=== PATIENT | male | born 1965 | race Caucasian/White ===

== ENCOUNTER 2022-01-27 14:51 | Outpatient (CLI) | payer BC, SELFPAY ==
--- NOTE | ~2022-01-27 | CT_ITS ---
EXAMINATION: CT soft tissue neck w con DATE: 01/27/2022 16:20 INDICATION: Cervical lymphadenopathy. TECHNIQUE: Computed tomography (CT) of the neck was performed with 75 mL Omnipaque-350 intravenous co ntrast. Automated exposure control and iterative reconstruction technique were employed. The dose-taniya gth product was 172.84 mGy-cm. COMPARISON: None FINDINGS: There is mild emphysema. There is mild scarring at the lung apices. There is mild mediastin al lymphadenopathy, likely reactive. The largest mediastinal node measures 18 x 11 mm. There is a rig ht posterior tracheal diverticulum at the thoracic inlet. There is plaque in the proximal internal ca rotid arteries with less than 50% stenosis relative to normal distal artery lumen diameters. There is mild mucosal thickening in the paranasal sinuses. The mastoid air cells are normal. There is mild ce rvical spondylosis. IMPRESSION: 1. No cervical lymphadenopathy. 2. Mild mediastinal lymphadenopathy, likely reactive. Reviewed, dictated and finalized at location A.
--- NOTE | ~2022-01-27 | CT_ITS ---
EXAMINATION: CT lung screening DATE: 01/27/2022 16:20 INDICATION: History of nicotine dependence. Cervical lymphadenopathy. TECHNIQUE: Computed tomography (CT) of the chest was performed without intravenous contrast. The dose -length product was 172.84 mGy-cm. Automated exposure control and iterative reconstruction technique were employed. COMPARISON: None FINDINGS: There is mild left axillary lymphadenopathy. Nonenlarged mediastinal lymph nodes, likely re active. Heart size normal. No significant pleural or pericardial effusion. There are calcified granul omas of the spleen. No significant pleural or pericardial effusion. There are calcified mediastinal a nd hilar lymph nodes, consistent with chronic granulomatous disease. There is emphysema. No focal air space consolidation. No pneumothorax. No endobronchial lesions. No suspicious pulmonary nodules or ma sses. Mild thoracic spondylosis. No acute osseous abnormality. There is gynecomastia. IMPRESSION: 1. Lung-RADS category 1: Negative. Continue annual screening with noncontrast low-dose chest CT in 12 months. 2: Left axillary lymphadenopathy, nonspecific. Largest left axillary lymph node measures 2.1 x 1.3 cm . Reviewed, dictated and finalized at location A. IMPRESSION: 1. Lung-RADS category 1: Negative. Continue annual screening with noncontrast l ow-dose chest CT in 12 months. 2: Left axillary lymphadenopathy, nonspecific. Largest left axillary lymph node measures 2.1 x 1.3 cm.
[2022-01-27 15:38] LABS: Estimated Glomerular Filt Rate 50
== END 2022-01-27 14:52 | disposition home or self-care (01) ==
LOC: CHSIMG 14:57
PROVIDERS: PCP Internal Medicine; Visit Provider Internal Medicine
DX: Z12.2 Encounter for screening for malignant neoplasm of respiratory organs (principal); Z87.891 Personal history of nicotine dependence; R59.0 Localized enlarged lymph nodes
CPT/HCPCS: 70491; 71271; Q9967

== ENCOUNTER 2022-05-15 07:01 | Outpatient (CLI) | payer BC, SELFPAY ==
--- NOTE | ~2022-05-15 | CT_ITS ---
EXAMINATION: CT diagnostic chest w con DATE: 05/15/2022 08:08 INDICATION: Left axillary lymphadenopathy TECHNIQUE: Computed tomography (CT) of the chest was performed with 75 CC Omnipaque 350 intravenous c ontrast. Automated exposure control and iterative reconstruction technique were employed. Exam dose: 350.37 mGy-cm total exam DLP. COMPARISON: 01/27/2022 CT lung screening FINDINGS: There is evidence of old pulmonary granulomatous disease including calcified right hilar an d subcarinal nodes, right lower lobe calcified pulmonary granuloma in addition to calcified splenic g ranulomas. No pulmonary infiltrate or consolidation. There is mild emphysema, with scattered pneumatoceles. Normal heart size. No thoracic aortic aneurysm or dissection. No hilar or mediastinal mass lesion or lymphadenopathy. Approximately 12.5 x 16 mm left axillary lymph node, mildly diminished from approximately 12.5 x 18 m m on 01/27/2022. Normal morphology of the adrenal glands. Minimal bilateral gynecomastia. IMPRESSION: Mild emphysema Minimal bilateral gynecomastia Reviewed, dictated and finalized at Location A. Reviewed, dictated and finalized at location A.
[2022-05-15 07:40] LABS: Estimated Glomerular Filt Rate 60
== END 2022-05-15 07:02 | disposition home or self-care (01) ==
LOC: CHSIMG 07:04
PROVIDERS: PCP Internal Medicine; Visit Provider Internal Medicine Hematology & Oncology
DX: R59.1 Generalized enlarged lymph nodes (principal)
CPT/HCPCS: 71260; Q9967

== ENCOUNTER 2024-02-25 17:42 | Outpatient (CLI) | payer OTHER, SELFPAY ==
--- NOTE | 2024-04-16 | XR_ITS ---
Ordering provider changed from Hernandez Fajardo MD to Sofia Fajardo MD [id number] XR foot RT min 3V Ordering provider: Hernandez Fajardo, History: . cellulitis of right foot . Comparison: None. FINDINGS: BONES: No acute fracture or dislocation. Hallux valgus is noted. Early calcaneal spur. JOINT SPACES: Severe osteoarthritic changes in the first metatarsophalangeal joint. No tarsal coalition. SOFT TISSUES: Normal. IMPRESSION: No acute osseous abnormality of the right foot. Reviewed, dictated and finalized at location A. MTDD
== END 2024-02-25 17:43 | disposition home or self-care (01) ==
PROVIDERS: PCP Internal Medicine; Visit Provider Internal Medicine
DX: L03.115 Cellulitis of right lower limb (principal)
CPT/HCPCS: 73630

== ENCOUNTER 2024-02-29 11:49 | Outpatient (CLI) | payer OTHER, SELFPAY ==
--- NOTE | ~2024-02-29 | MR_ITS ---
EXAMINATION: MR foot RT wo/w con DATE: 02/29/2024 12:47 INDICATION: Right foot ulcer and pain. TECHNIQUE: Magnetic resonance imaging (MRI) of the right foot was performed without and with 20 mL Mu ltiHance intravenous contrast. COMPARISON: Right foot radiographs 02/25/2024 FINDINGS: There is mild valgus. No fracture. There is an ulcer medial to head of first metatarsal. Th ere is an erosion of medial aspect of head of first metatarsal with associated edema-like marrow sign al intensity. There is moderate osteoarthritis of first metatarsophalangeal joint. Lisfranc ligament is intact. The flexor and extensor tendons are normal. IMPRESSION: 1. Osteomyelitis involving head of first metatarsal. 2. Moderate hallux valgus. 3. Moderate osteoarthritis of first metatarsophalangeal joint. Reviewed, dictated and finalized at location A.
== END 2024-02-29 11:50 ==
PROVIDERS: PCP Internal Medicine; Visit Provider Internal Medicine
DX: L03.115 Cellulitis of right lower limb (principal); M86.9 Osteomyelitis, unspecified; M20.11 Hallux valgus (acquired), right foot; M19.071 Primary osteoarthritis, right ankle and foot
CPT/HCPCS: 73720; A9577

== ENCOUNTER 2024-03-03 19:58 | Inpatient (IN) | payer OTHER, SELFPAY ==
--- NOTE | ~2024-03-03 | US_ITS ---
EXAMINATION: US renal BI DATE: 03/04/2024 10:42 INDICATION: Acute kidney injury. TECHNIQUE: Multiple ultrasound grayscale images of the kidneys were obtained. COMPARISON: Chest CT 05/15/2022 FINDINGS: The right kidney measures 11.8 x 5.5 x 4.5 cm. The left kidney measures 11.8 x 5.6 x 3.8 cm. The kidn eys demonstrate normal parenchymal echogenicity. There is no hydronephrosis. The bladder is normal. IMPRESSION: 1. Normal kidneys. No hydronephrosis. Reviewed, dictated and finalized at location A.
--- NOTE | ~2024-03-03 | US_ITS ---
EXAMINATION: US arterial ankle brachial ind DATE: 03/04/2024 16:55 INDICATION: Wound. Decreased pedal pulses. TECHNIQUE: Segmental pressures and plethysmographic and Doppler waveforms of the brachial and lower e xtremity arteries were obtained. COMPARISON: None. FINDINGS: Right and left brachial artery pressures of 121 mm Hg and 127 mm Hg, respectively, are concordant (no rmal difference <= 30 mmHg). The right ankle-brachial index (BAKARI) is 1.08 (normal >= 0.9-1.0). The right great toe-brachial index (TBI) is 0.65 (normal >= 0.65). Arterial Doppler waveforms are monophasic with brisk systolic upstrok es at both right posterior tibial and dorsalis pedis arteries. The left BAKARI is 1.13. The left TBI is 0.53. Arterial Doppler waveforms are monophasic with brisk syst olic upstrokes at both left posterior tibial and dorsalis pedis arteries. IMPRESSION: 1. Mild arterial occlusive disease with normal bilateral ABIs but mildly decreased left and borderlin e right TBIs. Reviewed, dictated and finalized at location A. IMPRESSION: 1. Mild arterial occlusive disease with normal bilateral ABIs but mildly decrea sed left and borderline right TBIs.
--- NOTE | ~2024-03-03 | XR_ITS ---
EXAMINATION: XR chest port-a-cath/central DATE: 03/04/2024 05:16 INDICATION: Central line placement. TECHNIQUE: A single frontal view of the chest was obtained on 2 radiographs. COMPARISON: Chest single view 03/04/2024 FINDINGS: There is no pneumonia, pleural effusion, or pneumothorax. The heart size is normal. A right subclavian central venous catheter is seen with tip in the superior vena cava. IMPRESSION: 1. Central line tip in the superior vena cava. Reviewed, dictated and finalized at location A.
--- NOTE | ~2024-03-03 | XR_ITS ---
EXAMINATION: XR chest 1V portable DATE: 03/04/2024 00:57 INDICATION: Cough. Fever and chills. TECHNIQUE: A single frontal view of the chest was obtained on 2 radiographs. COMPARISON: Chest CT 05/15/2022 FINDINGS: There is no pneumonia, pleural effusion, or pneumothorax. The heart size is normal. IMPRESSION: 1. No acute cardiopulmonary disease. Reviewed, dictated and finalized at location A.
[2024-03-03 20:34] VITALS: BP 110/61; PULSE 84; RESP 15; TEMP 36.8; O2SAT 99
[2024-03-03 22:56] VITALS: BP 105/69; PULSE 76; RESP 18; TEMP 36.8; O2SAT 99
[2024-03-04] VITALS (24 sets, daily range): BP systolic 76–144; BP diastolic 41–72; PULSE 58–82; RESP 11–20; TEMP 36.6–36.8; O2SAT 96–100; BMI 27.4
--- NOTE | 2024-03-04 00:36 | ECG_ITS ---
Test Date: 2024-03-04 01:46:51 Measurements Intervals [place] Rate: 75 P: 68 MD: 141 QRS: 50 QRSD: 88 T: 45 QT: 379 QTc: 425 Interpretive Statements SINUS RHYTHM LOW QRS VOLTAGE IN PRECORDIAL LEADS [QRS DEFLECTION < 1.0 mV IN CHEST LEADS] No previous ECG available for comparison Electronically Signed On 03-04-2024 10:23:01 CDT by Lea Herrera M.D.
[2024-03-04] MEDS: diphenhydrAMINE HCl INJ 50 MG/ML VIAL 25 MG IV PUSH ×4 (01:06→21:35)
[2024-03-04] MEDS: dexAMETHasone SOD PHOS INJ 10 MG/ML 1 ML VIAL IV PUSH (01:07)
[2024-03-04] MEDS: SODIUM CHLORIDE 0.9% IV 3,000 ML 999 ML IV CONT (01:07)
[2024-03-04 01:08] LABS: Device ROOM AIR; Fractional Inspired Oxygen 21 %; HCO3 VBG 21.1 mEq/l (24.0-30.0); PCO2 VBG 35.1 mmHg (42.0-48.0); PO2 VBG 52.3 mmHg (35.0-45.0); pH VBG 7.396 (7.300-7.400)
[2024-03-04 01:23] LABS: Partial Thromboplastin Time 23.6 Seconds (22.3-36.8); Prothrombin Time 13.2 Seconds (11.1-14.7)
[2024-03-04 01:25] LABS: Basophils Percent Auto 0.3 % (0.2-1.2); Eosinophils Absolute Auto 0.5 K/mm3 (0-0.3); Eosinophils Percent Auto 4.5 % (0-4.4); Hematocrit 43.5 % (42.0-52.0); Hemoglobin 14.9 g/dL (14.0-18.0); Immature Granulocyte Absolute 0.11 K/mm3 (0.00-0.031); Lymphocytes Absolute Auto 1.58 K/mm3 (0.9-3.2); Mean Corpuscular HGB Conc 34.3 g/dl (32-36); Mean Corpuscular Hemoglobin 31.7 pg (26-34); Mean Corpuscular Volume 92.6 fl (80-100); Mean Platelet Volume 9.4 fl (7.4-10.4); Monocytes Absolute Auto 0.4 K/mm3 (0.1-0.6); Monocytes Percent Auto 3.3 % (2.6-8.5); Neutrophils Absolute Auto 8.7 K/mm3 (1.3-6.7); Neutrophils Percent Auto 76.9 % (45.5-73.1); Platelet Count Result 295 k/mm3 (150-375); Red Cell Distribution Width 12.4 % (11.5-14.5); White Blood Count 11.3 K/mm3 (4.5-10.0)
[2024-03-04 01:25] LABS: Alanine Aminotransferase 21 U/L (6-50); Albumin Level 4.1 g/dL (3.5-5.1); Alkaline Phosphatase 65 U/L (38-126); Anion Gap 14 mmol/L (4-12); Aspartate Amino Transferase 28 U/L (17-59); Bilirubin,Total 0.5 mg/dL (0.2-1.3); Blood Urea Nitrogen 48 mg/dL (9-20); Calcium 8.7 mg/dL (8.4-10.2); Carbon Dioxide 21 mmol/L (22-30); Chloride 97 mmol/L (98-107); Estimated CRCL calculation 31 ml/min; Estimated Glomerular Filt Rate 23; Glucose 111 mg/dL (65-110); Lipase 63 U/L (23-300); Magnesium 1.7 mg/dL (1.6-2.3); Phosphorus 3.7 mg/dL (2.5-4.5); Potassium 3.9 mmol/L (3.4-5.0); Sodium 132 mmol/L (137-145)
--- NOTE | 2024-03-04 01:27 | ED.GENADULT ---
HPI - General Adult General Chief complaint: Allergic Reaction Stated complaint: right foot wound Time Seen by Provider: 03/04/24 00:26 History of Present Illness HPI narrative: This is a 58-year-old male presenting ED with chief complaint of rash. Patient developed an ulcer on the bunion of his right foot that had purulent discharge around 1 month ago. On February 24 he went to his primary physician . At that time his wound was debrided and a biopsy was taken of the bone. He was started on Augmentin and Bactrim. On February 28 he had an MRI with and without contrast at [facility] showing osteomyelitis of the head of the 1st metatarsal. That evening started developing itchy red rash across his back and torso. Over the next day it spread over his buttocks and onto his arms. The rash is itchy and feels warm to touch. He has also developed swelling along his eyelids. Over the following several days the patient did not feel well. He called off of work. He has had decreased oral intake and very low energy. Patient has had chills, feels warm all over although he attributes that to his rash. No chest pain. 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 He denies abdominal pain nausea vomiting or diarrhea. Related Data Home Medications Medication Instructions Recorded Confirmed amlodipine 10 mg tablet 10 mg PO DAILY 03/04/24 03/04/24 amoxicillin 875 mg-potassium 1 tablet PO BID 03/04/24 03/04/24 clavulanate 125 mg tablet losartan 100 mg tablet 100 mg PO DAILY 03/04/24 03/04/24 methylprednisolone 4 mg tablets in See Rx Instructions .Route .COMPLEX 03/04/24 03/04/24 a dose pack pravastatin 20 mg tablet 20 mg PO DAILY 03/04/24 03/04/24 sulfamethoxazole 800 1 tablet PO BID 03/04/24 03/04/24 mg-trimethoprim 160 mg tablet triamterene 37.5 1 tablet PO BID 03/04/24 03/04/24 mg-hydrochlorothiazide 25 mg tablet Allergies Allergy/AdvReac Type Severity Reaction Status Date / Time No Known Allergies Allergy Verified 03/03/24 20:39 Exam Narrative: APPEARANCE: No apparent distress. Head: atraumatic. EYES: EOMI, NOSE: Atraumatic NECK: Trachea midline RESPIRATORY: No increased rate of breathing CARDIOVASCULAR: RRR, ABDOMINAL: Non-distended MUSCULOSKELETAl: No obvious deformities NEURO: Alert. Moving 4/4 extremities SKIN:: Red rash covering the majority of the patient's face, torso upper arms and buttocks. Spares the genitals. Swelling of the eyelids. PSYCHIATRIC: Normal affect Course Vital Signs Vital signs: Vital Signs Temperature 98.3 F 03/03/24 20:34 Pulse Rate 84 03/03/24 20:34 Respiratory Rate 15 03/03/24 20:34 Blood Pressure 110/61 03/03/24 20:34 Pulse Oximetry 99 03/03/24 20:34 Oxygen Delivery Room Air 03/03/24 20:34 Temperature 98.3 F 03/03/24 22:56 Pulse Rate 66 03/04/24 04:22 Respiratory Rate 15 03/04/24 04:22 Blood Pressure 101/60 03/04/24 04:22 Pulse Oximetry 97 03/04/24 04:22 Oxygen Delivery Room Air 03/04/24 02:55 Procedures Central Line Placement Right SC: Central Line Date: 03/04/24 Discussed w/ the patient/family/POA,the placement of a central venous catheter, including its clinical necessity/indication & associated potential risks, benifits and alternatives.: Yes The patient/family/POA understand(s) and acknowledge(s) the need to proceed with central venous catheter insertion as an important element of the patient's clinical management.: Yes Time Out Performed: Yes Patient Placed on Monitor/Pulse Ox: Yes Max. Sterile Barrier Technique: Caps, large sterile sheet and hand hygiene Central Line Prep: 2% chlorhexidine scrub and sterile drapes applied Technique: sterile prep/drape Local Anesthetic: lidocaine 1% Amount of anesthesia used (mL): 4 Ultrasound Used for Placement: No Central Line Lumen Inserted: triple Post Procedur
[2024-03-04 01:36] LABS: Troponin I < 0.012 ng/mL (0.000-0.034)
[2024-03-04 02:35] LABS: Add Urine Microscopic? NO; Appearance Urine Clear (Clear); Bilirubin Urine Negative (Negative); Blood Urine Negative (Negative); Color Urine Yellow (Yellow); Glucose Urine UA Negative (Negative); Ketones Urine Trace mg/dL (Negative); Leukocyte Esterase Ur Negative LEU/UL (Negative); Nitrate Urine Negative (Negative); Protein Urine Negative (Negative); Specific Grav Ur 1.014 (1.001-1.035); Urobilinogen Urine 0.2 mg/dL (<2.0); pH Urine 5.5 (5.0-9.0)
[2024-03-04] MEDS: PIPERACILLN/TAZ 3.375GM/NS50ML 3.375 GM/50 ML BAG IVPB (02:39)
[2024-03-04] MEDS: VANCOMYCIN 2,000 MG/NS 500 ML 2,000 MG/500 ML BAG 250 MG IVPB (03:12)
[2024-03-04 04:14] LABS: Influenza A QL RT-PCR Negative (Negative); Influenza B QL RT-PCR Negative (Negative); RSV RNA, RT-PCR Negative (Negative); SARS-CoV-2 RNA PCR Negative (Negative)
[2024-03-04] MEDS: SODIUM CHLORIDE 0.9% IV 1,000 ML 999 ML IV CONT (04:20)
[2024-03-04] MEDS: EPINEPHrine HCL INJ 1 MG/ML AMPUL 0.3 MG IM (04:49)
[2024-03-04 04:58] LABS: Troponin I < 0.012 ng/mL (0.000-0.034)
[2024-03-04] MEDS: FAMOTIDINE 20 MG/2 ML VIAL 40 MG IV PUSH (05:40)
[2024-03-04] MEDS: EPINEPHrine INJ 1 MG in DEXTROSE 5% IN WATER 250 ML 15.06 MG IV CONT (05:40)
--- NOTE | 2024-03-04 06:33 | PM.IMHP ---
H&P: HPI History of Present Illness Date/Time: 03/04/24 04:40 Chief Complaint: Rash Narrative: 58-year-old male with a past medical history of essential hypertension, hyperlipidemia and right foot wound who presented to the ER with a rash. The patient developed an ulcer on the bunion of his right foot that had purulence drainage 1 month ago. On February 24 his primary care physician [address] Fajardo debrided the wound and took biopsy of the bone. He was sent home with prescriptions for Bactrim and Augmentin. On the he had an MRI of the foot with without contrast at [facility] that demonstrated osteomyelitis at the head of 1st metatarsal. The evening he had the MRI he developed a erythematous itchy rash across his back and torso. The following day it extended to his buttocks arms and scattered areas on his lower extremities. Over the weekend the began having chills and sweats. He reports that he has been having intermittent lightheadedness with position changes. He denies any shortness for breath. He has been feeling generally weak. He felt bad enough that he did take a couple of days off from work. He has had significant decrease in appetite and fatigue. He denies any nausea, vomiting, change in bowel habits or abdominal pain. He has not had any chest pain. He has a chronic cough due to smoking. He thinks that the chills and feeling warmer due to his rash. Review of Systems Review of Systems: 12 systems were reviewed with pertinent positives and negatives per HPI. Except as documented in the HPI, all other systems were reviewed and are negative. 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 He has smoked 1.5 packs per day since he was a teenager. He drinks alcohol a couple of times a week in moderation. He denies illicit substance use. He served in the [employer] for many years during a couple of different worse. He does not have any children. Code status: Full code Surrogate decision maker: Toshia Grey (significant other) Smoking packs per day: 1.5 Smoking cigarettes per day: 30.0 Years smoked: 45 Smoking pack-years: 67.50 Smoking status: Current every day smoker Tobacco type: cigarettes Alcohol intake: current Drinks per week: 1 Substance use: never Substance use type: does not use Do You Feel Safe in your Home?: Yes Lack of Transportation: No Lack of Food: Never True Current Housing: I Have Housing Concerned About Future Housing: No Difficulty Paying Gas/Electric Bills: No Difficulty Paying for Meds: No Currently Unemployed: No Education: Decline to Answer Difficulty w/ Childcare or Family Care: No Spiritual care concerns: No Meds Home Medications and Allergies Home Medications Medication Instructions Recorded Confirmed Type amlodipine 10 mg tablet 10 mg PO DAILY 03/04/24 03/04/24 History amoxicillin 875 mg-potassium 1 tablet PO BID 03/04/24 03/04/24 History clavulanate 125 mg tablet losartan 100 mg tablet 100 mg PO DAILY 03/04/24 03/04/24 History methylprednisolone 4 mg tablets in See Rx Instructions .Route .COMPLEX 03/04/24 03/04/24 History a dose pack pravastatin 20 mg tablet 20 mg PO DAILY 03/04/24 03/04/24 History sildenafil 100 mg tablet 100 mg PO DAILY PRN Erectile 03/04/24 03/04/24 History Dysfunction sulfamethoxazole 800 1 tablet PO BID 0
--- NOTE | 2024-03-04 06:36 | PC.NURSE ---
This patient, Luiz Montague, was admitted to Intensive Care Unit-2. Patient/family oriented to hospital policies and general routines including ID bracelet, bed and alarms, visiting hours, pain management, procedures, bathroom and other care routines, personal items, smoking policy, room service/diet, and visiting hours. Information on how to activate the Rapid Response Team has been discussed. Patient/Family are encouraged to report perceived risks to care and to ask questions if they do not understand what they are told or what they should do.
[2024-03-04] MEDS: LACTATED RINGERS 1,000 ML 75 ML IV CONT (08:39)
--- NOTE | 2024-03-04 08:51 | WPDCNINT ---
Assessment and Plan Assessment and plan (1) Shock: Code(s): R57.9 - Shock, unspecified Status: Acute Assessment and Plan: Shock most likely related to septic from osteomyelitis versus anaphylaxis secondary to medication -patient received 4 L IV fluid bolus and is on maintenance IV fluids -started on epinephrine infusion, will maintain MAP > 65 mmHg at all times for adequate end organ perfusion -continue vancomycin, will switch Zosyn to cefepime and Flagyl (03/04) -03/04: blood cultures have been obtained -patient with acute kidney injury, will monitor urine output and renal function (2) Anaphylactic reaction: Code(s): T78.2XXA - Anaphylactic shock, unspecified, initial encounter Status: Acute Assessment and Plan: Anaphylactic reaction likely related to Bactrim versus penicillin -patient has impressive diffuse macular blanchable rash on his torso, back, arms and upper thighs along with periorbital swelling -patient denies any difficulty swallowing or feeling of fullness in his throat, no drooling or difficulty breathing -patient states that he has taken penicillin in the past without any issues -will schedule Solu-Medrol, Pepcid, Benadryl -continue to monitor rash (3) Osteomyelitis: Code(s): M86.9 - Osteomyelitis, unspecified Status: Acute Assessment and Plan: Continue antibiotics as above -will require a PICC line to be placed for long-term antibiotics once the blood cultures are resulted -will consult Orthopedics -appreciated wound care evaluation (4) Acute kidney injury: Code(s): N17.9 - Acute kidney failure, unspecified Status: Acute Assessment and Plan: Patient presented with acute kidney injury with creatinine 2.80 (baseline creatinine 1.25) - likely related to hypotension secondary to anaphylaxis versus sepsis/septic shock -received adequate amount of IV fluids -continue maintenance IV fluids -urine output has been adequate -will check urine lytes, urine eosinophils, CK level -check renal ultrasound -monitor urine output, renal function electrolytes (5) Essential hypertension: Code(s): I10 - Essential (primary) hypertension Status: Acute Assessment and Plan: Will hold all antihypertensives for now as patient is on vasopressor infusion (6) Hyperlipidemia: Code(s): E78.5 - Hyperlipidemia, unspecified Status: Acute Assessment and Plan: Continue pravastatin Plan DVT prophylaxis: Will add enoxaparin Stress ulcer prophylaxis: Not indicated Nutrition: Heart healthy diet Code Status: Full code Critical Care Time Spent: 49 minutes Due to a high probability of clinically significant, life threatening deterioration, the patient required my highest level of preparedness to intervene emergently and I personally spent this critical care time directly and personally managing the patient. This critical care time included obtaining a history; examining the patient; pulse oximetry; ordering and review of studies; arranging urgent treatment with development of a management plan; evaluation of patient's response to treatment; frequent reassessment; and discussions with other providers. It was exclusive of separately billable procedures and treating other patients and teaching time. Please see Assessment and Plan section and the rest of the note for further information on patient assessment and treatment This dictation may have been done utilizing a voice recognition system. Attempts have been made to correct errors. However, there may be uncorrected grammatical, spelling, and recognitions errors present. Electrifier Operator Consult Note Consult date: 03/04/24 Reason for consult: Shock likely due to anaphylaxis, septic, rash, hypotension, acute kidney injury HPI: Luiz Otto Montague is a 58 year old male with past medical history of hypertension, hyperlipidemia, right more foot wound presented the ED with rash, hypotension. Patient develop
[2024-03-04] MEDS: metroNIDAZOLE 500 MG/ISO 100ML 500 MG/100 ML BAG 100 MG IVPB ×3 (09:25→21:34)
[2024-03-04] MEDS: FAMOTIDINE 20 MG/2 ML VIAL IV PUSH (09:25)
[2024-03-04] MEDS: CEFEPIME 2 GM/NS 50 ML 2 GM/50 ML BAG IVPB ×2 (09:26→21:34)
[2024-03-04] MEDS: ENOXAPARIN 40 MG/0.4 ML SYRINGE SUB-Q (10:08)
[2024-03-04] MEDS: PRAVASTATIN SODIUM 20 MG TABLET PO (10:08)
--- NOTE | 2024-03-04 10:30 | PM.IMPN ---
Progress Note: A&P Assessment and Plan (1) Shock: Code(s): R57.9 - Shock, unspecified Status: Acute Assessment and Plan: Patient presents with rash and found to have HoTN with BP dropping to 76/47. He received Decadron, IV fluids and Benadryl in ED. Zosyn started. Epinephrine x1 then placed on an Epi drip. He feels slightly better. No evidence of airway compromise. Monitor closely in ICU. Agree with stopping Zosyn since he was on Augmentin prior to admission. Appreciate academic guidance specialist input. Discussed. (2) Anaphylactic reaction: Code(s): T78.2XXA - Anaphylactic shock, unspecified, initial encounter Status: Acute Assessment and Plan: As above. [place] related to Bactrim but was also on Augmentin and had just received gadolinium from the MRI as other potential sources. Bactrim added to allergy list. (3) Osteomyelitis: Code(s): M86.9 - Osteomyelitis, unspecified Status: Acute Assessment and Plan: The patient developed an ulcer on the bunion of his right foot that had purulence drainage 1 month ago. PCP debrided the wound and took biopsy of the bone on 02/24 and started on Bactrim and Augmentin. MRI of the foot with without contrast 02/28 showing osteomyelitis at the head of 1st metatarsal. Continue broad spectrum IV abx. Ortho consult Plan for 6 weeks of IV abx therapy (4) Acute kidney injury: Code(s): N17.9 - Acute kidney failure, unspecified Status: Acute Assessment and Plan: He may have underlying CKD with baseline Cr at 1.25-1.47. Cr on admission at 2.8. Suspect related to the bactrim and/or anaphylacic shock either as ATN from low BP and/or allergic interstitial nephritis and associated with home medications (Maxide, ARB). Potassium normal. Mildly acidotic with serum bicarb 21 and AG 14. Continue IV fluids. Monitor UOP, electrolytes and renal funcion (5) Essential hypertension: Code(s): I10 - Essential (primary) hypertension Status: Acute Assessment and Plan: Patient's blood pressure was reviewed on 03/04 Blood pressure better on Epi drip Amlodipine, losartan and maxide held Will continue to monitor (6) Hyperlipidemia: Code(s): E78.5 - Hyperlipidemia, unspecified Status: Acute Assessment and Plan: LFTs okay. Pravachol resumed. Plan Code status - full DVT prophylaxis - lovenox Subjective Date/time seen: 03/04/24 10:30 Interval history: 58yo male with HTN, HLD and right foot wound who presented to the ER with a rash. Rash began about 3-4 days after onset of Augmentin and bactrim. Has facial swelling but no tongue or throat swelling. No SOB or CP. feels the patients voice is thick. No n/v. Exam Narrative: AF 98.0 121/62 68 11 100% ra Gen - NARD sitting up in bed HEENT - periorbital edema. Chest - CTA bilaterally, nml RR CV - RRR S1/S2. Tele showing no significant dysrhythmias Abd - Soft, NT/ND, Positive BS Ext - No pedal edema Neuro - Alert and appropriate Psych - Nml mood and affect Skin - diffuse macular, blanchable rash that is coalesced on the torso and back and more splotchy thighs and upper extremities bilaterally Objective Data Vital Signs Vital Signs: Vital Signs - 24 hr 03/03/24 20:34 03/03/24 22:56 03/04/24 00:28 Temperature 98.3 F 98.3 F Pulse Rate 84 76 74 Respiratory Rate 15 18 15 Blood Pressure 110/61 105/69 108/54 L Pulse Oximetry 99 99 98 Oxygen Delivery Room Air Fraction of Inspired Oxygen 03/04/24 02:55 03/04/24 03:36 03/04/24 00:27 Temperature Pulse Rate 68 Respiratory Rate 15 Blood Pressure 121/54 L 76/47 L Pulse Oximetry 97 96 Oxygen Delivery Room Air Fraction of Inspired Oxygen 03/04/24 01:30 03/04/24 03:00 03/04/24 04:22 Temperature Pulse Rate 66 Respiratory Rate 15 Blood Pressure 96/41 L 91/58 L 101/60 Pulse Oximetry 97 Oxygen Delivery Fraction of Inspired Oxygen
[2024-03-04 10:37] LABS: Creatinine Urine 45.8 mg/dL
[2024-03-04 10:38] LABS: Potassium Urine Random 23.5 meq/L; Sodium Urine Random 43 meq/L
[2024-03-04 10:56] LABS: MRSA (PCR) NOT DETECTED (NOT DETECTE)
[2024-03-04 11:30] LABS: Eosinophil Urine None Seen % (None Seen); Urine Eos QC 2nd Tech Confirmed
--- NOTE | 2024-03-04 12:22 | PM.CNOR ---
Assessment and Plan Assessment and plan (1) Hallux rigidus of right foot: Code(s): M20.21 - Hallux rigidus, right foot Status: Acute Assessment and Plan: New patient evaluation for chief complaint Right hallux swelling. History, physical exam and radiographs reviewed with the patient. Discussed the condition, nature, etiology and course of natural history with the patient. Severe hallux valgus with large medial eminence and callus formation. Patient reports a history of about 3 weeks ago the callus opened and had some drainage. He has a central erosion of the medial eminence noted on x-ray and MRI. There does not appear to be any active infection at this time. Recommend continued workup with ABIs, uric acid and inflammatory lab testing for possible etiology. Okay to continue conservative treatment for the foot. No surgical indications at this time. Will follow-up as an outpatient. (2) Hallux valgus (acquired), right foot: Code(s): M20.11 - Hallux valgus (acquired), right foot Status: Acute History of Present Illness HPI Consult date: 03/04/24 Requesting physician: Jase Sanders MD Consult reason: joint pain Chief complaint: Shock PMFSH Past Medical History Medical History (Updated 03/04/24 @ 12:28 by Won Lindquist MD) Essential hypertension Hallux rigidus of right foot Hallux valgus (acquired), right foot Hyperlipidemia Surgical History Surgical History No significant past surgical history Family History Family History Father Esophageal cancer Malignant neoplasm of prostate Social History Social History Social History: Patient is a santos. He lives with his girlfriend. He has smoked 1.5 packs per day since he was a teenager. He drinks alcohol a couple of times a week in moderation. He denies illicit substance use. He served in the [employer] for many years during a couple of different worse. He does not have any children. Code status: Full code Surrogate decision maker: Toshia Grey (significant other) Smoking packs per day: 1.5 Smoking cigarettes per day: 30.0 Years smoked: 45 Smoking pack-years: 67.50 Smoking status: Current every day smoker Tobacco type: cigarettes Alcohol intake: current Drinks per week: 1 Substance use: never Substance use type: does not use Do You Feel Safe in your Home?: Yes Lack of Transportation: No Lack of Food: Never True Current Housing: I Have Housing Concerned About Future Housing: No Difficulty Paying Gas/Electric Bills: No Difficulty Paying for Meds: No Currently Unemployed: No Education: Decline to Answer Difficulty w/ Childcare or Family Care: No Spiritual care concerns: No Meds Home Medications and Allergies Home Medications Medication Instructions Recorded Confirmed Type amlodipine 10 mg tablet 10 mg PO DAILY 03/04/24 03/04/24 History amoxicillin 875 mg-potassium 1 tablet PO BID 03/04/24 03/04/24 History clavulanate 125 mg tablet losartan 100 mg tablet 100 mg PO DAILY 03/04/24 03/04/24 History methylprednisolone 4 mg tablets in See Rx Instructions .Route .COMPLEX 03/04/24 03/04/24 History a dose pack pravastatin 20 mg tablet 20 mg PO DAILY 03/04/24 03/04/24 History sildenafil 100 mg tablet 100 mg PO DAILY PRN Erectile 03/04/24 03/04/24 History Dysfunction sulfamethoxazole 800 1 tablet PO BID 03/04/24 03/04/24 History mg-trimethoprim 160 mg tablet triamterene 37.5 1 tablet PO BID 03/04/24 03/04/24 History mg-hydrochlorothiazide 25 mg tablet Allergies Allergy/AdvReac Type Severity Reaction Status Date / Time sulfamethoxazole Allergy Severe Anaphylaxis Verified 03/04/24 06:48 [From Bactrim] trimethoprim [From Bactrim] Allergy Severe Anaphylaxis Verified 03/04/24 06:48
[2024-03-04] MEDS: methylPREDNISolone SOD SUCC 125 MG VIAL 60 MG IV PUSH ×2 (12:24→17:25)
[2024-03-04 12:55] LABS: Lactic Acid Reflex 1.8 mmol/L (0.7-2.0)
[2024-03-04 13:01] LABS: Anion Gap 8 mmol/L (4-12); Blood Urea Nitrogen 31 mg/dL (9-20); Calcium 7.7 mg/dL (8.4-10.2); Carbon Dioxide 20 mmol/L (22-30); Chloride 106 mmol/L (98-107); Creatine Kinase 69 U/L (55-170); Estimated CRCL calculation 54 ml/min; Estimated Glomerular Filt Rate 45; Glucose 221 mg/dL (65-110); Magnesium 1.7 mg/dL (1.6-2.3); Phosphorus 2.7 mg/dL (2.5-4.5); Sodium 134 mmol/L (137-145)
[2024-03-04 13:22] LABS: Erythrocyte Sedimentation Rate 9 mm/hr (0-20)
[2024-03-04 13:24] LABS: Uric Acid 5.1 mg/dL (3.5-8.5)
[2024-03-04] MEDS: CENTRAL LINE FLUSH 10 ML IV PUSH ×2 (13:24→21:34)
[2024-03-04 13:32] LABS: CRP 3.6 mg/dL (<1.0)
[2024-03-04 13:35] LABS: Rheumatoid Factor < 12.0 IU/ML (<12)
[2024-03-04 23:35] LABS: Vancomycin Random 6.2 ug/mL (10-20)
[2024-03-05] VITALS (10 sets, daily range): BP systolic 106–146; BP diastolic 55–70; PULSE 58–78; RESP 14–22; TEMP 36.6–37.1; O2SAT 93–100
[2024-03-05] MEDS: VANCOMYCIN 1,500 MG/NS 500 ML 1,500 MG/500 ML BAG 250 MG IVPB (00:34)
[2024-03-05] MEDS: methylPREDNISolone SOD SUCC 125 MG VIAL 60 MG IV PUSH ×5 (00:35→23:35)
[2024-03-05] MEDS: diphenhydrAMINE HCl INJ 50 MG/ML VIAL 25 MG IV PUSH ×2 (03:30→09:06)
[2024-03-05] MEDS: metroNIDAZOLE 500 MG/ISO 100ML 500 MG/100 ML BAG 100 MG IVPB (05:38)
[2024-03-05] MEDS: CENTRAL LINE FLUSH 10 ML IV PUSH ×3 (05:38→20:50)
[2024-03-05 05:54] LABS: Basophils Percent Auto 0.2 % (0.2-1.2); Eosinophils Absolute Auto 0.2 K/mm3 (0-0.3); Hematocrit 33.5 % (42.0-52.0); Hemoglobin 11.4 g/dL (14.0-18.0); Lymphocytes Absolute Auto 1.19 K/mm3 (0.9-3.2); Lymphocytes Percent Auto 6.2 % (18.3-44.2); Mean Corpuscular Hemoglobin 31.6 pg (26-34); Mean Corpuscular Volume 92.8 fl (80-100); Mean Platelet Volume 9.6 fl (7.4-10.4); Monocytes Absolute Auto 0.4 K/mm3 (0.1-0.6); Monocytes Percent Auto 1.8 % (2.6-8.5); Neutrophils Absolute Auto 17.3 K/mm3 (1.3-6.7); Neutrophils Percent Auto 89.8 % (45.5-73.1); Platelet Count Result 226 k/mm3 (150-375); Red Blood Count 3.61 M/mm3 (4.6-6.20); Red Cell Distribution Width 12.3 % (11.5-14.5); White Blood Count 19.2 K/mm3 (4.5-10.0)
[2024-03-05 06:03] LABS: Alanine Aminotransferase 18 U/L (6-50); Alkaline Phosphatase 67 U/L (38-126); Anion Gap 8 mmol/L (4-12); Aspartate Amino Transferase 22 U/L (17-59); Bilirubin,Total 0.1 mg/dL (0.2-1.3); Blood Urea Nitrogen 26 mg/dL (9-20); Calcium 8.4 mg/dL (8.4-10.2); Carbon Dioxide 22 mmol/L (22-30); Chloride 105 mmol/L (98-107); Estimated CRCL calculation 70 ml/min; Estimated Glomerular Filt Rate > 60; Glucose 186 mg/dL (65-110); Lactic Acid Reflex 2.2 mmol/L (0.7-2.0); Magnesium 1.7 mg/dL (1.6-2.3); Phosphorus 1.9 mg/dL (2.5-4.5); Potassium 3.7 mmol/L (3.4-5.0); Sodium 135 mmol/L (137-145)
[2024-03-05 08:52] LABS: Reflex Lactic Acid Yes or No Add Lactic
[2024-03-05] MEDS: POTASSIUM PHOS/SODIUM PHOS 250 MG TABLET PO (09:05)
[2024-03-05] MEDS: PRAVASTATIN SODIUM 20 MG TABLET PO (09:06)
[2024-03-05] MEDS: CEFEPIME 2 GM/NS 50 ML 2 GM/50 ML BAG IVPB (09:06)
[2024-03-05] MEDS: ENOXAPARIN 40 MG/0.4 ML SYRINGE SUB-Q (09:06)
[2024-03-05] MEDS: FAMOTIDINE 20 MG/2 ML VIAL IV PUSH ×2 (09:06→20:49)
[2024-03-05] MEDS: cefTRIAXone 2 GM/NS 100 ML 2 GM/100 ML BAG IVPB (11:19)
--- NOTE | 2024-03-05 11:31 | PC.NURSE ---
Report called to MICHAEL Mccoy on Med/Surg
--- NOTE | 2024-03-05 12:54 | WPDINTPN ---
Progress Note: A&P Assessment and Plan (1) Shock: Code(s): R57.9 - Shock, unspecified Status: Acute Assessment and Plan: RESOLVED Shock most likely related to septic from osteomyelitis versus anaphylaxis secondary to medication -patient is OFF epinephrine infusion, -blood cultures from primary care doctor's office growing Staph aureus and strep mitis -will start Ying therapy with ceftriaxone 2 g Q 24 hours - Discontinue vancomycin, cefepime and Flagyl -03/04: blood cultures here at [facility]: Preliminary report is negative x2 -very good urine output, creatinine has normalized (2) Anaphylactic reaction: Qualifiers: Encounter type: initial encounter Qualified Code(s): T78.2XXA - Anaphylactic shock, unspecified, initial encounter Code(s): T78.2XXA - Anaphylactic shock, unspecified, initial encounter Status: Acute Assessment and Plan: Anaphylactic reaction likely related to Bactrim versus penicillin -patient has impressive diffuse macular blanchable rash on his torso, back, arms and upper thighs along with periorbital swelling -patient denies any difficulty swallowing or feeling of fullness in his throat, no drooling or difficulty breathing -patient states that he has taken penicillin in the past without any issues -continue Solu-Medrol, Pepcid and will switch Benadryl to loratadine -continue to monitor rash (3) Osteomyelitis: Qualifiers: Laterality: right Osteomyelitis location: foot Osteomyelitis type: unspecified type Qualified Code(s): M86.9 - Osteomyelitis, unspecified Code(s): M86.9 - Osteomyelitis, unspecified Status: Acute Assessment and Plan: Continue antibiotics as above -will require a PICC line to be placed for long-term antibiotics once the blood cultures are resulted -appreciate orthopedic evaluation and recommendations, no surgical intervention at this time -uric acid was within normal limits -03/04: ankle brachial index: Mild arterial occlusive disease with normal bilateral ABIs but mildly decreased left and borderline right TBIs. -appreciated wound care evaluation (4) Acute kidney injury: Code(s): N17.9 - Acute kidney failure, unspecified Status: Acute Assessment and Plan: RESOLVED Patient presented with acute kidney injury with creatinine 2.80 (baseline creatinine 1.25) - likely related to hypotension secondary to anaphylaxis versus sepsis/septic shock -received adequate amount of IV fluids -continue maintenance IV fluids -urine output has been adequate -renal ultrasound was unremarkable -creatinine has normalized -monitor urine output, renal function electrolytes (5) Essential hypertension: Code(s): I10 - Essential (primary) hypertension Status: Acute Assessment and Plan: Will hold all antihypertensives for now as patient was on vasopressors -will restart if patient hypertensive (6) Hyperlipidemia: Code(s): E78.5 - Hyperlipidemia, unspecified Status: Acute Assessment and Plan: Continue pravastatin Plan DVT prophylaxis: enoxaparin Stress ulcer prophylaxis: Not indicated Nutrition: Heart healthy diet Code Status: Full code Critical Care Time Spent: 31 minutes Discussed with patient updated with his condition and plan of care. Patient may transfer out of the ICU Due to a high probability of clinically significant, life threatening deterioration, the patient required my highest level of preparedness to intervene emergently and I personally spent this critical care time directly and personally managing the patient. This critical care time included obtaining a history; examining the patient; pulse oximetry; ordering and review of studies; arranging urgent treatment with development of a management plan; evaluation of patient's response to treatment; frequent reassessment; and discussions with other providers. It was exclusive of separately billable procedure
[2024-03-05 16:37] LABS: Chloride Rand Ur 56 mmol/L (32-290); Chloride/Creatinine Rand Ur 122 (23-275); Creatinine Random Urine 46 mg/dL (20-320)
--- NOTE | 2024-03-05 17:21 | WPDPN ---
Progress Note: A&P Assessment and Plan (1) Hallux valgus (acquired), right foot: Code(s): M20.11 - Hallux valgus (acquired), right foot Status: Acute (2) Hallux rigidus of right foot: Code(s): M20.21 - Hallux rigidus, right foot Status: Acute (3) Shock: Code(s): R57.9 - Shock, unspecified Status: Acute (4) Anaphylactic reaction: Qualifiers: Encounter type: initial encounter Qualified Code(s): T78.2XXA - Anaphylactic shock, unspecified, initial encounter Code(s): T78.2XXA - Anaphylactic shock, unspecified, initial encounter Status: Acute (5) Osteomyelitis: Qualifiers: Laterality: right Osteomyelitis location: foot Osteomyelitis type: unspecified type Qualified Code(s): M86.9 - Osteomyelitis, unspecified Code(s): M86.9 - Osteomyelitis, unspecified Status: Acute (6) Acute kidney injury: Code(s): N17.9 - Acute kidney failure, unspecified Status: Acute Plan Patient was admitted in the ICU for septic shock 2/2 infected bunion possibly OM showed on MRI and being treated with vancomycin and zosyn however patient was seen by ortho does not suspect infection and recommending conservative management, also concerning for allergic reaction with unknown substance and being treated with salmeterol, pepcid and benadryl, patient remains clinically stable and further recommendation to follow. patient now clinically stable and transferred to medical floor. Subjective Date/time seen: 03/05/24 17:21 Interval history: Rash H&G-FPI-Herkdhldw: 58-year-old male with a past medical history of essential hypertension, hyperlipidemia and right foot wound who presented to the ER with a rash. The patient developed an ulcer on the bunion of his right foot that had purulence drainage 1 month ago. On February [address] Fajardo debrided the wound and took biopsy of the bone. He was sent home with prescriptions for Bactrim and Augmentin. On the he had an MRI of the foot with without contrast at [facility] that demonstrated osteomyelitis at the head of 1st metatarsal. The evening he had the MRI he developed a erythematous itchy rash across his back and torso. The following day it extended to his buttocks arms and scattered areas on his lower extremities. Over the weekend the began having chills and sweats. He reports that he has been having intermittent lightheadedness with position changes. He denies any shortness for breath. He has been feeling generally weak. He felt bad enough that he did take a couple of days off from work. He has had significant decrease in appetite and fatigue. He denies any nausea, vomiting, change in bowel habits or abdominal pain. He has not had any chest pain. He has a chronic cough due to smoking. He thinks that the chills and feeling warmer due to his rash. Patient was admitted in the ICU for septic shock 2/2 infected bunion possibly OM showed on MRI and being treated with vancomycin and zosyn however patient was seen by ortho does not suspect infection and recommending conservative management, also concerning for allergic reaction with unknown substance and being treated with salmeterol, pepcid and benadryl, patient remains clinically stable and further recommendation to follow. patient now clinically stable and transferred to medical floor. Review of Systems Review of Systems: All systems reviewed & are unremarkable except as noted in HPI and below Exam Narrative: Patient is comfortable, NAD HEENT: eyes are clear and none icteric LUNGS:CTA HEART: RR S1S2 ABD: BS+, Soft and nontender Lower extremities: no edema Rt Foot: 1st metatarsal swollen, erythematous and has scab, no drainage or red streak. SKIN: nonjaundiced Neuro: grossly intact. Objective Data Vital Signs Vital Signs: Vital Signs - 24 hr 03/04/24 18:00 03/04/24 18:00 03/04/24 20:00 Temperature
[2024-03-06] VITALS: PULSE 70
[2024-03-06 04:00] VITALS: PULSE 49
[2024-03-06] MEDS: methylPREDNISolone SOD SUCC 125 MG VIAL 60 MG IV PUSH ×3 (05:23→17:10)
[2024-03-06] MEDS: CENTRAL LINE FLUSH 10 ML IV PUSH ×3 (05:26→20:16)
[2024-03-06 05:44] LABS: Basophils Percent Auto 0.2 % (0.2-1.2); Eosinophils Absolute Auto 0.1 K/mm3 (0-0.3); Eosinophils Percent Auto 0.5 % (0-4.4); Hematocrit 31.6 % (42.0-52.0); Hemoglobin 10.7 g/dL (14.0-18.0); Immature Granulocyte Absolute 0.18 K/mm3 (0.00-0.031); Immature Granulocyte Percent A 1.1 % (0-0.5); Lymphocytes Absolute Auto 1.78 K/mm3 (0.9-3.2); Lymphocytes Percent Auto 10.4 % (18.3-44.2); Mean Corpuscular HGB Conc 33.9 g/dl (32-36); Mean Corpuscular Hemoglobin 31.5 pg (26-34); Mean Corpuscular Volume 92.9 fl (80-100); Mean Platelet Volume 9.5 fl (7.4-10.4); Monocytes Absolute Auto 0.5 K/mm3 (0.1-0.6); Monocytes Percent Auto 2.8 % (2.6-8.5); Neutrophils Absolute Auto 14.5 K/mm3 (1.3-6.7); Platelet Count Result 219 k/mm3 (150-375); Red Cell Distribution Width 12.6 % (11.5-14.5); White Blood Count 17.1 K/mm3 (4.5-10.0)
[2024-03-06 05:56] VITALS: BP 135/66; PULSE 72; RESP 18; TEMP 36.9; O2SAT 97
[2024-03-06 05:56] LABS: Alanine Aminotransferase 19 U/L (6-50); Albumin Level 3.1 g/dL (3.5-5.1); Alkaline Phosphatase 52 U/L (38-126); Anion Gap 7 mmol/L (4-12); Aspartate Amino Transferase 22 U/L (17-59); Bilirubin,Total < 0.1 mg/dL (0.2-1.3); Blood Urea Nitrogen 29 mg/dL (9-20); Calcium 8.4 mg/dL (8.4-10.2); Carbon Dioxide 26 mmol/L (22-30); Chloride 105 mmol/L (98-107); Estimated CRCL calculation 77 ml/min; Estimated Glomerular Filt Rate > 60; Glucose 145 mg/dL (65-110); Magnesium 1.7 mg/dL (1.6-2.3); Phosphorus 2.9 mg/dL (2.5-4.5); Potassium 3.6 mmol/L (3.4-5.0); Sodium 138 mmol/L (137-145)
[2024-03-06 08:00] VITALS: PULSE 53; O2SAT 97
[2024-03-06] MEDS: PRAVASTATIN SODIUM 20 MG TABLET PO (08:01)
[2024-03-06] MEDS: LORATADINE 10 MG TABLET PO (08:01)
[2024-03-06] MEDS: ENOXAPARIN 40 MG/0.4 ML SYRINGE SUB-Q (08:01)
[2024-03-06] MEDS: FAMOTIDINE 20 MG/2 ML VIAL IV PUSH ×2 (08:01→20:16)
[2024-03-06] MEDS: ARTIFICIAL TEARS OPHTH SOLN 15 ML BOTTLE 1 DROP EACH EYE (09:33)
[2024-03-06] MEDS: cefTRIAXone 2 GM/NS 100 ML 2 GM/100 ML BAG IVPB (11:13)
[2024-03-06 14:00] VITALS: BP 155/63; PULSE 78; RESP 16; TEMP 36.4; O2SAT 94
--- NOTE | 2024-03-06 14:27 | WPDPN ---
Progress Note: A&P Assessment and Plan (1) Hallux valgus (acquired), right foot: Code(s): M20.11 - Hallux valgus (acquired), right foot Status: Acute (2) Hallux rigidus of right foot: Code(s): M20.21 - Hallux rigidus, right foot Status: Acute (3) Shock: Code(s): R57.9 - Shock, unspecified Status: Acute (4) Anaphylactic reaction: Qualifiers: Encounter type: initial encounter Qualified Code(s): T78.2XXA - Anaphylactic shock, unspecified, initial encounter Code(s): T78.2XXA - Anaphylactic shock, unspecified, initial encounter Status: Acute (5) Osteomyelitis: Qualifiers: Laterality: right Osteomyelitis location: foot Osteomyelitis type: unspecified type Qualified Code(s): M86.9 - Osteomyelitis, unspecified Code(s): M86.9 - Osteomyelitis, unspecified Status: Acute (6) Acute kidney injury: Code(s): N17.9 - Acute kidney failure, unspecified Status: Acute Plan Patient was admitted in the ICU for septic shock 2/2 infected bunion possibly OM showed on MRI and being treated with vancomycin and zosyn blood culture no growth so far, however patient was seen by ortho does not suspect infection and recommending conservative management, also concerning for allergic reaction with unknown substance however 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 and being treated with salmeterol, pepcid and benadryl, patient remains clinically stable and further recommendation to follow. patient now clinically stable and transferred to medical floor. Subjective Date/time seen: 03/06/24 14:27 Interval history: Rash H&E-JIH-Emnrighkj: 58-year-old male with a past medical history of essential hypertension, hyperlipidemia and right foot wound who presented to the ER with a rash. The patient developed an ulcer on the bunion of his right foot that had purulence drainage 1 month ago. On February [address] Fajardo debrided the wound and took biopsy of the bone. He was sent home with prescriptions for Bactrim and Augmentin. On the he had an MRI of the foot with without contrast at [facility] that demonstrated osteomyelitis at the head of 1st metatarsal. The evening he had the MRI he developed a erythematous itchy rash across his back and torso. The following day it extended to his buttocks arms and scattered areas on his lower extremities. Over the weekend the began having chills and sweats. He reports that he has been having intermittent lightheadedness with position changes. He denies any shortness for breath. He has been feeling generally weak. He felt bad enough that he did take a couple of days off from work. He has had significant decrease in appetite and fatigue. He denies any nausea, vomiting, change in bowel habits or abdominal pain. He has not had any chest pain. He has a chronic cough due to smoking. He thinks that the chills and feeling warmer due to his rash. 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 and being treated with salmeterol, pepcid and benadryl, patient remains clinically stable and further recommendation to follow. patient now clinically stable and transferred to medical floor. Review of Systems Review of Systems: All systems reviewed & are unremarkable except as noted in HPI and below Exam Narrative: Patient is comfortable, NAD HEENT: eyes are clear and none icteric LUNGS:CTA HEART: RR S1S2 ABD: BS+, Soft and nontende
[2024-03-06 15:08] LABS: Anti Cyclic Citrullinated Pept <16 UNITS
[2024-03-06] MEDS: diphenhydrAMINE HCl CAP 25 MG CAPSULE 50 MG PO (20:38)
[2024-03-06 21:00] VITALS: BP 140/62; PULSE 57; RESP 18; TEMP 36.6; O2SAT 95
[2024-03-06 21:10] LABS: HLA B27 NEGATIVE (NEGATIVE)
[2024-03-07] MEDS: methylPREDNISolone SOD SUCC 125 MG VIAL 60 MG IV PUSH ×5 (00:25→23:16)
[2024-03-07] MEDS: CENTRAL LINE FLUSH 10 ML IV PUSH ×3 (05:36→20:35)
[2024-03-07] MEDS: diphenhydrAMINE HCl CAP 25 MG CAPSULE 50 MG PO ×3 (05:47→20:41)
[2024-03-07 05:51] LABS: Basophils Percent Auto 0.2 % (0.2-1.2); Eosinophils Percent Auto 0.2 % (0-4.4); Hematocrit 31.6 % (42.0-52.0); Hemoglobin 10.8 g/dL (14.0-18.0); Immature Granulocyte Absolute 0.18 K/mm3 (0.00-0.031); Immature Granulocyte Percent A 1.3 % (0-0.5); Lymphocytes Absolute Auto 2.39 K/mm3 (0.9-3.2); Lymphocytes Percent Auto 16.9 % (18.3-44.2); Mean Corpuscular HGB Conc 34.2 g/dl (32-36); Mean Corpuscular Volume 93.8 fl (80-100); Mean Platelet Volume 9.9 fl (7.4-10.4); Monocytes Absolute Auto 0.6 K/mm3 (0.1-0.6); Monocytes Percent Auto 4.2 % (2.6-8.5); Neutrophils Absolute Auto 10.9 K/mm3 (1.3-6.7); Neutrophils Percent Auto 77.2 % (45.5-73.1); Platelet Count Result 223 k/mm3 (150-375); Red Blood Count 3.37 M/mm3 (4.6-6.20); Red Cell Distribution Width 12.7 % (11.5-14.5); White Blood Count 14.2 K/mm3 (4.5-10.0)
[2024-03-07 06:00] VITALS: BP 160/78; PULSE 62; RESP 20; TEMP 36.9; O2SAT 95
[2024-03-07 06:00] LABS: Alanine Aminotransferase 37 U/L (6-50); Albumin Level 3.1 g/dL (3.5-5.1); Alkaline Phosphatase 69 U/L (38-126); Anion Gap 5 mmol/L (4-12); Aspartate Amino Transferase 38 U/L (17-59); Bilirubin,Total < 0.1 mg/dL (0.2-1.3); Blood Urea Nitrogen 35 mg/dL (9-20); Calcium 8.4 mg/dL (8.4-10.2); Carbon Dioxide 28 mmol/L (22-30); Chloride 106 mmol/L (98-107); Estimated CRCL calculation 84 ml/min; Estimated Glomerular Filt Rate > 60; Glucose 181 mg/dL (65-110); Magnesium 1.8 mg/dL (1.6-2.3); Phosphorus 2.4 mg/dL (2.5-4.5); Potassium 3.7 mmol/L (3.4-5.0); Sodium 139 mmol/L (137-145)
[2024-03-07 07:21] LABS: Platelet Estimate Adequate (Adequate)
[2024-03-07 07:22] LABS: Atypical Lymphocytes Present; Schistocytes None Seen
[2024-03-07] MEDS: ENOXAPARIN 40 MG/0.4 ML SYRINGE SUB-Q (10:08)
[2024-03-07] MEDS: PRAVASTATIN SODIUM 20 MG TABLET PO (10:08)
[2024-03-07] MEDS: FAMOTIDINE 20 MG/2 ML VIAL IV PUSH ×2 (10:08→20:34)
[2024-03-07] MEDS: cefTRIAXone 2 GM/NS 100 ML 2 GM/100 ML BAG IVPB (10:09)
[2024-03-07 14:00] VITALS: BP 163/85; PULSE 60; RESP 18; TEMP 36.8; O2SAT 97
--- NOTE | 2024-03-07 14:07 | WPDPN ---
Progress Note: A&P Assessment and Plan (1) Hallux valgus (acquired), right foot: Code(s): M20.11 - Hallux valgus (acquired), right foot Status: Acute (2) Hallux rigidus of right foot: Code(s): M20.21 - Hallux rigidus, right foot Status: Acute (3) Shock: Code(s): R57.9 - Shock, unspecified Status: Acute (4) Anaphylactic reaction: Qualifiers: Encounter type: initial encounter Qualified Code(s): T78.2XXA - Anaphylactic shock, unspecified, initial encounter Code(s): T78.2XXA - Anaphylactic shock, unspecified, initial encounter Status: Acute (5) Osteomyelitis: Qualifiers: Laterality: right Osteomyelitis location: foot Osteomyelitis type: unspecified type Qualified Code(s): M86.9 - Osteomyelitis, unspecified Code(s): M86.9 - Osteomyelitis, unspecified Status: Acute (6) Acute kidney injury: Code(s): N17.9 - Acute kidney failure, unspecified Status: Acute Plan Patient was admitted in the ICU for septic shock 2/2 infected bunion possibly OM showed on MRI and being treated with vancomycin and zosyn blood culture no growth so far, however patient was seen by ortho does not suspect infection and recommending conservative management, also concerning for allergic reaction with unknown substance however 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 and being treated with salmeterol, pepcid and benadryl, patient remains clinically stable and further recommendation to follow. will reach out Dr. Lindquist further recommendation. Subjective Date/time seen: 03/07/24 14:07 Interval history: Rash H&R-YIG-Kminajeka: 58-year-old male with a past medical history of essential hypertension, hyperlipidemia and right foot wound who presented to the ER with a rash. The patient developed an ulcer on the bunion of his right foot that had purulence drainage 1 month ago. On February [address] Fajardo debrided the wound and took biopsy of the bone. He was sent home with prescriptions for Bactrim and Augmentin. On the he had an MRI of the foot with without contrast at [facility] that demonstrated osteomyelitis at the head of 1st metatarsal. The evening he had the MRI he developed a erythematous itchy rash across his back and torso. The following day it extended to his buttocks arms and scattered areas on his lower extremities. Over the weekend the began having chills and sweats. He reports that he has been having intermittent lightheadedness with position changes. He denies any shortness for breath. He has been feeling generally weak. He felt bad enough that he did take a couple of days off from work. He has had significant decrease in appetite and fatigue. He denies any nausea, vomiting, change in bowel habits or abdominal pain. He has not had any chest pain. He has a chronic cough due to smoking. He thinks that the chills and feeling warmer due to his rash. 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 and being treated with salmeterol, pepcid and benadryl, patient remains clinically stable and further recommendation to follow. will reach out Dr. Lindquist further recommendation. Review of Systems Review of Systems: All systems reviewed & are unremarkable except as noted in HPI and below Exam Narrative: Patient is comfortable, NAD HEENT: eyes are clear and none icteric LUNGS:CTA HEART: RR S1S2 ABD: BS+, Soft and nontender Lower extremities: no edema
[2024-03-07 20:20] VITALS: BP 171/76; PULSE 50; RESP 18; TEMP 36.6; O2SAT 96
[2024-03-08] MEDS: methylPREDNISolone SOD SUCC 125 MG VIAL 60 MG IV PUSH ×3 (05:23→17:16)
[2024-03-08] MEDS: CENTRAL LINE FLUSH 10 ML IV PUSH ×3 (05:24→20:03)
[2024-03-08 05:41] LABS: Basophils Percent Auto 0.2 % (0.2-1.2); Eosinophils Percent Auto 0.1 % (0-4.4); Hematocrit 31.4 % (42.0-52.0); Hemoglobin 10.5 g/dL (14.0-18.0); Immature Granulocyte Absolute 0.25 K/mm3 (0.00-0.031); Immature Granulocyte Percent A 1.8 % (0-0.5); Lymphocytes Absolute Auto 3.05 K/mm3 (0.9-3.2); Lymphocytes Percent Auto 22.4 % (18.3-44.2); Mean Corpuscular HGB Conc 33.4 g/dl (32-36); Mean Corpuscular Hemoglobin 31.3 pg (26-34); Mean Corpuscular Volume 93.7 fl (80-100); Mean Platelet Volume 9.9 fl (7.4-10.4); Monocytes Absolute Auto 0.5 K/mm3 (0.1-0.6); Monocytes Percent Auto 3.7 % (2.6-8.5); Neutrophils Absolute Auto 9.8 K/mm3 (1.3-6.7); Neutrophils Percent Auto 71.8 % (45.5-73.1); Platelet Count Result 232 k/mm3 (150-375); Red Blood Count 3.35 M/mm3 (4.6-6.20); Red Cell Distribution Width 12.5 % (11.5-14.5); White Blood Count 13.6 K/mm3 (4.5-10.0)
[2024-03-08 05:58] LABS: Alanine Aminotransferase 72 U/L (6-50); Alkaline Phosphatase 53 U/L (38-126); Aspartate Amino Transferase 49 U/L (17-59); Calcium 8.2 mg/dL (8.4-10.2); Carbon Dioxide 29 mmol/L (22-30); Glucose 147 mg/dL (65-110); Magnesium 1.8 mg/dL (1.6-2.3); Potassium 3.8 mmol/L (3.4-5.0); Sodium 139 mmol/L (137-145)
[2024-03-08 06:00] VITALS: BP 165/77; PULSE 52; RESP 14; TEMP 36.5; O2SAT 96
[2024-03-08 06:13] LABS: Albumin Level 3.1 g/dL (3.5-5.1); Anion Gap 6 mmol/L (4-12); Bilirubin,Total < 0.1 mg/dL (0.2-1.3); Blood Urea Nitrogen 36 mg/dL (9-20); Chloride 104 mmol/L (98-107); Estimated CRCL calculation 84 ml/min; Estimated Glomerular Filt Rate > 60; Phosphorus 3.6 mg/dL (2.5-4.5)
[2024-03-08 07:13] LABS: Atypical Lymphocytes Present; Platelet Estimate Adequate (Adequate); Schistocytes None Seen
[2024-03-08] MEDS: FAMOTIDINE 20 MG/2 ML VIAL IV PUSH ×2 (09:07→20:03)
[2024-03-08] MEDS: ENOXAPARIN 40 MG/0.4 ML SYRINGE SUB-Q (09:07)
[2024-03-08] MEDS: LORATADINE 10 MG TABLET PO (09:08)
[2024-03-08] MEDS: PRAVASTATIN SODIUM 20 MG TABLET PO (09:08)
[2024-03-08] MEDS: cefTRIAXone 2 GM/NS 100 ML 2 GM/100 ML BAG IVPB (12:14)
--- NOTE | 2024-03-08 12:34 | WPDPN ---
Progress Note: A&P Assessment and Plan (1) Hallux valgus (acquired), right foot: Code(s): M20.11 - Hallux valgus (acquired), right foot Status: Acute (2) Hallux rigidus of right foot: Code(s): M20.21 - Hallux rigidus, right foot Status: Acute (3) Shock: Code(s): R57.9 - Shock, unspecified Status: Acute (4) Anaphylactic reaction: Qualifiers: Encounter type: initial encounter Qualified Code(s): T78.2XXA - Anaphylactic shock, unspecified, initial encounter Code(s): T78.2XXA - Anaphylactic shock, unspecified, initial encounter Status: Acute (5) Osteomyelitis: Qualifiers: Laterality: right Osteomyelitis location: foot Osteomyelitis type: unspecified type Qualified Code(s): M86.9 - Osteomyelitis, unspecified Code(s): M86.9 - Osteomyelitis, unspecified Status: Acute (6) Acute kidney injury: Code(s): N17.9 - Acute kidney failure, unspecified Status: Acute Plan Patient was admitted in the ICU for septic shock 2/2 infected bunion possibly OM showed on MRI and being treated with vancomycin and zosyn blood culture no growth so far, patient's white counts are trending down, 13.6 from high of 19.2, however patient was seen by ortho does not suspect infection and recommending conservative management, also concerning for allergic reaction with unknown substance however 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 and being treated with salmeterol, pepcid and benadryl, patient remains clinically stable and further recommendation to follow. will reach out Dr. Lindquist further recommendation. Subjective Date/time seen: 03/08/24 12:34 Interval history: Rash H&W-CIL-Shegqppca: 58-year-old male with a past medical history of essential hypertension, hyperlipidemia and right foot wound who presented to the ER with a rash. The patient developed an ulcer on the bunion of his right foot that had purulence drainage 1 month ago. On February [address] Fajardo debrided the wound and took biopsy of the bone. He was sent home with prescriptions for Bactrim and Augmentin. On the he had an MRI of the foot with without contrast at [facility] that demonstrated osteomyelitis at the head of 1st metatarsal. The evening he had the MRI he developed a erythematous itchy rash across his back and torso. The following day it extended to his buttocks arms and scattered areas on his lower extremities. Over the weekend the began having chills and sweats. He reports that he has been having intermittent lightheadedness with position changes. He denies any shortness for breath. He has been feeling generally weak. He felt bad enough that he did take a couple of days off from work. He has had significant decrease in appetite and fatigue. He denies any nausea, vomiting, change in bowel habits or abdominal pain. He has not had any chest pain. He has a chronic cough due to smoking. He thinks that the chills and feeling warmer due to his rash. 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 and being treated with salmeterol, pepcid and benadryl, patient remains clinically stable and further recommendation to follow. will reach out Dr. Lindquist further recommendation. Review of Systems Review of Systems: All systems reviewed & are unremarkable except as noted in HPI and below Exam Narrative: Patient is comfortable,
[2024-03-08 14:00] VITALS: BP 160/80; PULSE 60; RESP 14; TEMP 36.5; O2SAT 97
[2024-03-08 21:32] VITALS: BP 171/81; PULSE 99; RESP 16; TEMP 36.2; O2SAT 96
[2024-03-09] MEDS: methylPREDNISolone SOD SUCC 125 MG VIAL 60 MG IV PUSH ×5 (00:02→23:49)
[2024-03-09] MEDS: CENTRAL LINE FLUSH 10 ML IV PUSH ×3 (05:32→20:58)
[2024-03-09 05:40] VITALS: BP 164/78; PULSE 51; RESP 18; TEMP 36.1; O2SAT 95
[2024-03-09 05:51] LABS: Basophils Percent Auto 0.2 % (0.2-1.2); Eosinophils Percent Auto 0.2 % (0-4.4); Hematocrit 31.7 % (42.0-52.0); Lymphocytes Absolute Auto 2.43 K/mm3 (0.9-3.2); Lymphocytes Percent Auto 18.5 % (18.3-44.2); Mean Corpuscular HGB Conc 34.7 g/dl (32-36); Mean Corpuscular Hemoglobin 31.9 pg (26-34); Mean Corpuscular Volume 91.9 fl (80-100); Mean Platelet Volume 9.7 fl (7.4-10.4); Monocytes Absolute Auto 0.6 K/mm3 (0.1-0.6); Monocytes Percent Auto 4.3 % (2.6-8.5); Neutrophils Absolute Auto 9.7 K/mm3 (1.3-6.7); Neutrophils Percent Auto 73.8 % (45.5-73.1); Nucleated Red Blood Cells Perc 0.4 % (0.0-0.2); Platelet Count Result 259 k/mm3 (150-375); Red Blood Count 3.45 M/mm3 (4.6-6.20); Red Cell Distribution Width 12.5 % (11.5-14.5); White Blood Count 13.1 K/mm3 (4.5-10.0)
[2024-03-09 06:09] LABS: Alanine Aminotransferase 124 U/L (6-50); Albumin Level 3.2 g/dL (3.5-5.1); Alkaline Phosphatase 64 U/L (38-126); Anion Gap 8 mmol/L (4-12); Aspartate Amino Transferase 52 U/L (17-59); Bilirubin,Total < 0.1 mg/dL (0.2-1.3); Blood Urea Nitrogen 34 mg/dL (9-20); Calcium 8.2 mg/dL (8.4-10.2); Carbon Dioxide 29 mmol/L (22-30); Chloride 100 mmol/L (98-107); Estimated CRCL calculation 84 ml/min; Estimated Glomerular Filt Rate > 60; Glucose 183 mg/dL (65-110); Magnesium 1.9 mg/dL (1.6-2.3); Phosphorus 3.1 mg/dL (2.5-4.5); Potassium 3.8 mmol/L (3.4-5.0); Sodium 137 mmol/L (137-145)
[2024-03-09] MEDS: LORATADINE 10 MG TABLET PO (08:50)
[2024-03-09] MEDS: FAMOTIDINE 20 MG/2 ML VIAL IV PUSH ×2 (08:50→20:58)
[2024-03-09] MEDS: PRAVASTATIN SODIUM 20 MG TABLET PO (08:50)
[2024-03-09] MEDS: ENOXAPARIN 40 MG/0.4 ML SYRINGE SUB-Q (08:51)
[2024-03-09] MEDS: cefTRIAXone 2 GM/NS 100 ML 2 GM/100 ML BAG IVPB (11:51)
[2024-03-09] MEDS: FLUTICASONE PROPIONATE 0.05% NA SPR 16 GM BTL (*BKC) 2 SPRAY NASAL (13:58)
[2024-03-09 14:00] VITALS: BP 160/78; PULSE 60; RESP 18; TEMP 36.5; O2SAT 95
--- NOTE | 2024-03-09 15:08 | WPDPN ---
Progress Note: A&P Assessment and Plan (1) Hallux valgus (acquired), right foot: Code(s): M20.11 - Hallux valgus (acquired), right foot Status: Acute (2) Hallux rigidus of right foot: Code(s): M20.21 - Hallux rigidus, right foot Status: Acute (3) Shock: Code(s): R57.9 - Shock, unspecified Status: Acute (4) Anaphylactic reaction: Qualifiers: Encounter type: initial encounter Qualified Code(s): T78.2XXA - Anaphylactic shock, unspecified, initial encounter Code(s): T78.2XXA - Anaphylactic shock, unspecified, initial encounter Status: Acute (5) Osteomyelitis: Qualifiers: Laterality: right Osteomyelitis location: foot Osteomyelitis type: unspecified type Qualified Code(s): M86.9 - Osteomyelitis, unspecified Code(s): M86.9 - Osteomyelitis, unspecified Status: Acute (6) Acute kidney injury: Code(s): N17.9 - Acute kidney failure, unspecified Status: Acute Plan Patient was admitted in the ICU for septic shock 2/2 infected bunion possibly OM showed on MRI and being treated with vancomycin and zosyn blood culture no growth so far, patient's white counts are trending down, 13.1 from high of 19.2, blood culture no growth so far, however patient was seen by ortho does not suspect infection and recommending conservative management, also concerning for allergic reaction with unknown substance however 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 and being treated with salmeterol, pepcid and benadryl, patient remains clinically stable and further recommendation to follow. will reach out Dr. Lindquist for further recommendation. Subjective Date/time seen: 03/09/24 15:08 Interval history: Rash H&A-ECY-Djibjwihl: 58-year-old male with a past medical history of essential hypertension, hyperlipidemia and right foot wound who presented to the ER with a rash. The patient developed an ulcer on the bunion of his right foot that had purulence drainage 1 month ago. On February 24 [address] primary care physician [address] Fajardo debrided the wound and took biopsy of the bone. He was sent home with prescriptions for Bactrim and Augmentin. On the he had an MRI of the foot with without contrast at [facility] that demonstrated osteomyelitis at the head of 1st metatarsal. The evening he had the MRI he developed a erythematous itchy rash across his back and torso. The following day it extended to his buttocks arms and scattered areas on his lower extremities. Over the weekend the began having chills and sweats. He reports that he has been having intermittent lightheadedness with position changes. He denies any shortness for breath. He has been feeling generally weak. He felt bad enough that he did take a couple of days off from work. He has had significant decrease in appetite and fatigue. He denies any nausea, vomiting, change in bowel habits or abdominal pain. He has not had any chest pain. He has a chronic cough due to smoking. He thinks that the chills and feeling warmer due to his rash. Patient was admitted in the ICU for septic shock 2/2 infected bunion possibly OM showed on MRI and being treated with vancomycin and zosyn blood culture no growth so far, patient's white counts are trending down, 13.1 from high of 19.2, blood culture no growth so far, however patient was seen by ortho does not suspect infection and recommending conservative management, also concerning for allergic reaction with unknown substance however 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 and being treated with salmeterol, pepcid and benadryl, patient remains clinically stable and further recommendation to follow. will reach out Dr. Lindquist for further recommendation. Review of Systems Review of Systems: 12 systems were reviewed with pertinent positives
[2024-03-09 21:46] VITALS: BP 183/91; PULSE 56; RESP 18; TEMP 36.1; O2SAT 98
[2024-03-09 23:56] VITALS: BP 169/70; PULSE 53; O2SAT 95
[2024-03-10] MEDS: methylPREDNISolone SOD SUCC 125 MG VIAL 60 MG IV PUSH ×2 (05:14→11:31)
[2024-03-10] MEDS: CENTRAL LINE FLUSH 10 ML IV PUSH ×2 (05:14→14:16)
[2024-03-10 06:13] VITALS: BP 180/80
[2024-03-10 09:20] VITALS: BP 164/88
[2024-03-10] MEDS: PRAVASTATIN SODIUM 20 MG TABLET PO (09:22)
[2024-03-10] MEDS: FAMOTIDINE 20 MG/2 ML VIAL IV PUSH (09:22)
[2024-03-10] MEDS: ENOXAPARIN 40 MG/0.4 ML SYRINGE SUB-Q (09:22)
[2024-03-10] MEDS: FLUTICASONE PROPIONATE 0.05% NA SPR 16 GM BTL (*BKC) 2 SPRAY NASAL (09:22)
--- NOTE | 2024-03-10 09:23 | PM.PNORT ---
Progress Note: A&P Assessment and Plan (1) Hallux rigidus of right foot: Code(s): M20.21 - Hallux rigidus, right foot Status: Acute Assessment and Plan: Reevaluation of the right foot. Previous radiographs of the right foot on 02/24 reveal severe osteoarthritic changes in the first metatarsophalangeal joint. Patient had a bone biopsy on 02/24 as well. Unsure if the biopsy was performed before or after radiographs. No results of the bone biopsy available in the chart. I have contacted Dr. Fajardo's office to request the bone biopsy results. MRI of the right foot on 02/28 revealed an ulcer medial to head of first metatarsal with an erosion of medial aspect of head of first metatarsal with associated edema-like marrow signal intensity. There is also moderate osteoarthritis of first metatarsophalangeal joint. Erosion could be consistent with OM vs. changes consistent with bone biopsy. Patient has been receiving IV antibiotics since admission. His right foot medial hallux wound is closed. There is no purulence. No redness, no warmth. No malodor. No immediate surgical intervention necessary. Patient would benefit from a hallux valgus correction in the future once medically stable to reduce recurrent callus formation and subsequent wounds and/or infection. Patient may follow up with our office as an outpatient. Antibiotic recommendations at discharge per the hospitalist service vs. ID Pharm. Would benefit from final bone biopsy results from Dr. Fajardo to help determine treatment plan. To note, previously recommended uric acid and antiinflammatory work up negative. ABIs revealed moderate arterial occlusive disease. No further surgical recommendations at this time. If further concern for OM or inability to obtain bone biopsy results from 02/[address] Fajardo, may recommend bone scan for further evaluation. (2) Hallux valgus (acquired), right foot: Code(s): M20.11 - Hallux valgus (acquired), right foot Status: Acute (3) Anaphylactic reaction: Qualifiers: Encounter type: initial encounter Qualified Code(s): T78.2XXA - Anaphylactic shock, unspecified, initial encounter Code(s): T78.2XXA - Anaphylactic shock, unspecified, initial encounter Status: Acute Assessment and Plan: Etiology unknown. Symptoms did develop quickly following his MRI with IV contrast dye on 02/28. Per medical records, he had been on the oral antibiotics beginning 02/24 after an in office bone biopsy. (4) Osteomyelitis: Qualifiers: Laterality: right Osteomyelitis location: foot Osteomyelitis type: unspecified type Qualified Code(s): M86.9 - Osteomyelitis, unspecified Code(s): M86.9 - Osteomyelitis, unspecified Status: Acute Subjective Subjective Date/Time Seen: 03/10/24 09:23 Interval history: Patient initially evaluated by the orthopedic service on admission to the ICU. Initial complaints of right medial hallux wound around 02/24 at which point his PCP debrided and biposed the bone. He was started on Augmentin and Bactrim at that time. Unsure if radiographs were taken before or after reported bone biopsy. Unable to find biopsy results in patient chart. He then underwent a MRI of the right foot on 02/28 WITH with 20 mL MultiHance intravenous contrast. MRI of the right foot revealed an ulcer medial to head of first metatarsal. There is an erosion of medial aspect of head of first metatarsal with associated edema-like marrow signal intensity. There is moderate osteoarthritis of first metatarsophalangeal joint. He subsequently developed an acute onset rash the evening of the MRI with contrast dye with worsening symptoms throughout the weekend. He then presented to the ED on 03/03, hypotensive with ROSIBEL with suspected anaphylactic versus septic shock. Patient started on epi drip. Blood pressure, rash, mental status improved. Patient admitted to the ICU. Patient was started on epi drip and admitted to the ICU.?
[2024-03-10] MEDS: cefTRIAXone 2 GM/NS 100 ML 2 GM/100 ML BAG IVPB (10:51)
--- NOTE | 2024-03-10 13:34 | PM.DS ---
DS: Admitting Diagnosis Discharge Date 03/10/2024 Admitting Diagnosis Rash DS: Discharge Diagnosis Discharge Diagnosis (1) Hallux valgus (acquired), right foot: Code(s): M20.11 - Hallux valgus (acquired), right foot Status: Acute (2) Hallux rigidus of right foot: Code(s): M20.21 - Hallux rigidus, right foot Status: Acute (3) Shock: Code(s): R57.9 - Shock, unspecified Status: Acute (4) Osteomyelitis: Qualifiers: Laterality: right Osteomyelitis location: foot Osteomyelitis type: unspecified type Qualified Code(s): M86.9 - Osteomyelitis, unspecified Code(s): M86.9 - Osteomyelitis, unspecified Status: Acute (5) Acute kidney injury: Code(s): N17.9 - Acute kidney failure, unspecified Status: Acute DS: Summary Hospital Course Hospital Course: Patient was admitted in the ICU for septic shock 2/2 infected bunion possibly OM showed on MRI and being treated with vancomycin and zosyn blood culture no growth so far, patient's white counts are trending down, 13.1 from high of 19.2, blood culture no growth so far, however patient was seen by ortho does not suspect infection and recommending conservative management, also concerning for allergic reaction with unknown substance however 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 and being treated with salmederol, pepcid and benadryl, patient remains clinically stable and further recommendation to follow. will reach out Dr. Lindquist for further recommendation. patient remain clinically stable, his wound improved, seen by orthopedic service, patient does not need any surgical intervention, will discharge on abx, patient will follow up his orthopedic Time Spent with Patient Time attestation: Total time spent providing and/or coordinating discharge services: Discharge Plan Discharge Attending physician on discharge: Velia Worrell Consulting providers: Jase Sanders; Won Lindquist; Cuong Wan; Hossein Knapp; Rachel Ewing; Lea Herrera; Donald Robbins V. Discharging Clinician: Anthony Bhagat Patient Disposition: Home, Self-Care Activity: may shower Diet: regular Wound Care Instructions: follow printed instructions Discharge Instructions: Anaphylactic reaction Orthopedic Recommendations Dr. Won Lindquist [phone] Follow up as needed. Recommend supportive shoe wear. Patient to follow discharge care instruction from his orthopedic surgeon and follow up as scheduled. patient to follow up with his primary care provider as soon as possible. patient is instructed if any symptoms worsen to go to nearest ER. Patient Instructions: Antibiotic Form, How to Stop Smoking (GEN), Removal of a Central Line, PICC, or Midline Catheter (DC) Stand Alone Forms: General Discharge Information, Work/School Release IP Follow-up/Referrals: Won Lindquist MD [Physician] - Call for Appointment (as needed ) Sofia Fajardo MD [Primary Care Provider] - Discharge Medications: New fluticasone propionate 50 mcg/actuation [place],Suspension 2 spray intranasal QAM Qty: 1 0RF doxycycline hyclate 100 mg Tablet 100 mg PO Q12HR Qty: 14 0RF loratadine 10 mg Tablet 10 mg PO QAM Qty: 30 0RF prednisone 10 mg tablet 10 mg PO DAILY Qty: 63 0RF Rx Instructions: 6TX3d, 5Tx3d, 4Tx3d, 3Tx3d, 2Tx3d, 1Tx3d. diphenhydramine HCl [Benadryl] 25 mg capsule 25 mg PO TID PRN (Reason: allergy symptoms) Qty: 20 0RF Continued amlodipine 10 mg tablet 10 mg PO DAILY triamterene-hydrochlorothiazid 37.5-25 mg tablet 1 tablet PO BID pravastatin 20 mg tablet 20 mg PO DAILY losartan 100 mg tablet 100 mg PO DAILY methylprednisolone 4 mg tablets,dose pack See Rx Instructions .ROUTE .COMPLEX Rx Instructions: See Taper orally sildenafil 100 mg Tablet 100 mg PO DAILY PRN
[2024-03-10] MEDS: NEOMYCIN/POLYMYXIN/BACITRACIN OINTMENT PACKET 1 PACKET ×2 (14:16)
== END 2024-03-10 16:05 | disposition home or self-care (01) | DRG 916 ==
LOC: ANHED 03-04 05:29 → ANHICU 03-04 05:36 → ANH3MEDSUR 03-05 12:20
PROVIDERS: Internal Medicine; Nurse Practitioner Family; Orthopaedic Surgery; Admitting Provider Internal Medicine; Emergency Provider Emergency Medicine; PCP Internal Medicine; Visit Provider Family Medicine
DX: T78.2XXA Anaphylactic shock, unspecified, initial encounter (principal); M86.171 Other acute osteomyelitis, right ankle and foot; N17.9 Acute kidney failure, unspecified; M20.21 Hallux rigidus, right foot; M19.071 Primary osteoarthritis, right ankle and foot; M20.11 Hallux valgus (acquired), right foot; I10 Essential (primary) hypertension; E78.5 Hyperlipidemia, unspecified; F17.210 Nicotine dependence, cigarettes, uncomplicated
CPT/HCPCS: 36415; 36556; 71045; 76775; 80048; 80053; 80202; 81003; 82436; 82550; 82570; 82803; 83036; 83605; 83690; 83735; 84100; 84133; 84300; 84443; 84484; 84550; 85025; 85610; 85652; 85730; 85999; 86038; 86039; 86140; 86200; 86430; 86812; 87040; 87637; 87641; 93005; 93922; 96361; 96365; 96367; 96372; 96375; 99291; A9270; C1751; J0171; J0692; J0696; J1100; J1200; J1650; J1836; J2543; J2919; J3370; J7030; J7060; J7120

== ENCOUNTER 2024-06-16 06:49 | Outpatient (CLI) | payer OTHER, SELFPAY ==
--- NOTE | ~2024-06-16 | CT_ITS ---
CT Scan of the Chest without Contrast: Clinical Indication: Lymphadenopathy Technique: Contiguous sections were acquired throughout the chest without intravenous contrast. Dose reduction technique was used on this scan by utilizing automated exposure control and iterative recon struction technique. The dose-length product (DLP) was 375.14 mGy-cm. COMPARISON: 05/15/2022 Findings: Stable minimally prominent precarinal lymph node. Stable calcified subcarinal node. No gordon lymphade nopathy evident. The mediastinal soft tissues appear normal. There is no evidence of pleural or pericardial effusion. There is mild paraseptal emphysema in the upper lobes/apices. Probable focal scarring or postinflamma tory change in the left lower lobe, with 5 mm irregular nodular opacity present (axial image 94).. Images through the upper abdomen reveal calcified splenic granulomas. Impression: No gordon lymphadenopathy. Stable minimally prominent precarinal lymph node. 5 mm irregular left lower lobe nodule, likely benign. Consider one-year follow-up CT is indicated. Mild paraseptal emphysema. Reviewed, dictated and finalized at [facility]. RITY RESEARCHER Impression: No gordon lymphadenopathy. Stable minimally prominent precarinal lymph node. 5 mm irregular left lower lobe nodule, likely benign. Consider one-year follow- up CT is indicated. Mild paraseptal emphysema.
== END 2024-06-16 06:50 | disposition home or self-care (01) ==
PROVIDERS: PCP Internal Medicine; Visit Provider Internal Medicine Hematology
DX: R91.1 Solitary pulmonary nodule (principal); J43.8 Other emphysema; R59.1 Generalized enlarged lymph nodes
CPT/HCPCS: 71250

== ENCOUNTER 2024-06-24 09:35 | Outpatient (CLI) | payer OTHER, SELFPAY ==
--- NOTE | 2024-06-24 11:30 | NEURO_ITS ---
Impression: # Complains of numbness of feet. ? # Early asymmetrical axonal neuropathy. ? # Mildly abnormal needle/EMG exam in right lower extremity. ? # Clinical correlation recommended. Nerve Conduction Studies Anti Sensory Summary Table ?Stim Site NR Peak (ms) P-T Amp (?V) Site1 Site2 Delta-P (ms) Dist (cm) Pineda (m/s) Left Sup Fibular Anti Sensory (Ant Lat Mall) 14 cm ? 3.4 13.8 14 cm Ant Lat Mall 3.4 16.0 47 Right Sup Fibular Anti Sensory (Ant Lat Mall) 14 cm ? 3.5 7.5 14 cm Ant Lat Mall 3.5 16.0 46 Left Sural Anti Sensory (Lat Mall) Calf ? 3.9 7.4 Calf Lat Mall 3.9 17.0 44 Right Sural Anti Sensory (Lat Mall) Calf ? 3.5 14.7 Calf Lat Mall 3.5 16.0 46 Motor Summary Table ?Stim Site NR Onset (ms) O-P Amp (mV) Site1 Site2 Delta-0 (ms) Dist (cm) Pineda (m/s) Left Peroneal Motor (Vastus Med) Ankle ? 4.4 1.8 Popit Ankle 10.4 44.0 42 Popit ? 14.8 1.3 Right Peroneal Motor (Vastus Med) Ankle ? 3.9 2.0 Popit Ankle 9.5 43.0 45 Popit ? 13.4 1.3 Left Tibial Motor (Abd Londono Brev) Ankle ? 4.4 5.1 Knee Ankle 8.4 44.0 52 Knee ? 12.8 5.2 Right Tibial Motor (Abd Londono Brev) Ankle ? 4.5 2.1 Knee Ankle 9.3 42.0 45 Knee ? 13.8 1.3 F Wave Studies ?NR F-Lat (ms) L-R F-Lat (ms) Left Peroneal (Mrkrs) (EDB) ? 55.56 0.42 Right Peroneal (Mrkrs) (EDB) ? 55.97 0.42 Left Tibial (Mrkrs) (Abd Hallucis) ? 54.77 0.35 Right Tibial (Mrkrs) (Abd Hallucis) ? 54.42 0.35 EMG ?Side Muscle Nerve Root Ins Act Fibs Amp Dur Recrt Comment Right AntTibialis Dp Br Fibular L4-5 Nml Nml Nml >12ms +1 Right Gastroc Tibial S1-2 Nml Nml Nml Nml Nml Right Fibularis Long Sup Br Fibular L5-S1 Nml Nml Nml Nml Nml Right Flex Dig Long Tibial L5-S2 Nml Nml Nml Nml Nml Right Ext Dig Brev Dp Br Fibular L5, S1 Nml Nml Nml >12ms +2 Right QuadratusFem QuadFemoris L4-5, S1 Nml Nml Nml Nml Nml Left AntTibialis Dp Br Fibular L4-5 Nml Nml Nml Nml Nml Left Gastroc Tibial S1-2 Nml Nml Nml Nml Nml Left Fibularis Long Sup Br Fibular L5-S1 Nml Nml Nml Nml Nml Left Flex Dig Long Tibial L5-S2 Nml Nml Nml Nml Nml Left Ext Dig Brev Dp Br Fibular L5, S1 Nml Nml Nml Nml Nml Left QuadratusFem QuadFemoris L4-5, S1 Nml Nml Nml Nml Nml MTDD
== END 2024-06-24 09:36 | disposition home or self-care (01) ==
LOC: ANHNEURO 09:37
PROVIDERS: PCP Internal Medicine; Visit Provider Internal Medicine
DX: G62.9 Polyneuropathy, unspecified (principal)
CPT/HCPCS: 95886; 95910

== ENCOUNTER 2024-07-10 14:47 | Outpatient (CLI) | payer OTHER, SELFPAY ==
--- NOTE | ~2024-07-10 | MR_ITS ---
EXAMINATION: MR abdomen wo/w con DATE: 07/10/2024 16:03 INDICATION: Generalized enlarged lymph nodes. TECHNIQUE: Magnetic resonance imaging (MRI) of the abdomen was performed without and with 20 mL Multi Peter intravenous contrast. COMPARISON: Chest CT 06/16/2024 FINDINGS: The liver, pancreas, pancreas, and adrenal glands are normal. Calcifications in the spleen are consis tent with old granulomatous disease. There is cortical thinning of the kidneys. There are cysts in t he kidneys measuring up to 5 mm on the left. There are no dilated loops of bowel. There are no pathol ogically enlarged lymph nodes. There is no free intraperitoneal fluid. There is severe lower lumbar s pondylosis. IMPRESSION: 1. No lymphadenopathy. Reviewed, dictated and finalized at location A. OR ENVIRONMENTAL TECHNICIAN IMPRESSION: 1. No lymphadenopathy.
== END 2024-07-10 14:48 | disposition home or self-care (01) ==
PROVIDERS: PCP Internal Medicine; Visit Provider Internal Medicine Hematology
DX: E83.19 Other disorders of iron metabolism (principal); R59.1 Generalized enlarged lymph nodes
CPT/HCPCS: 74183; A9577

== ENCOUNTER 2024-12-09 15:30 | Outpatient (CLI) | payer BC, SELFPAY ==
--- OUTSIDE RECORDS SUMMARY | 2024-12-09 15:34 | XMS_ITS | Clinical Summary ---
Author Organization [facility] Address [address] [place] [address] Phone Care Team Providers Care Surgical Scheduler Name Role Phone Sofia Fajardo MD Primary Care Provider [phone] Petros Box MD Unavailable [phone] Toshia Watson APRN, DIRECTOR BIOMEDICAL ENGINEERING Unavailable [phone] Allergies Active Allergy Reactions Criticality Noted Date Comments Sulfa Antibiotics Anaphylaxis 05/16/2024 Medications amLODIPine (NORVASC) 10 MG Tablet 03/31/2024 Active pravastatin (PRAVACHOL) 20 MG Tablet 04/02/2024 Active triamterene-hydr ochlorothiazide (MAXZIDE) 37.5-25 MG Tablet 04/02/2024 Active losartan (COZAAR) 100 MG Tablet 04/02/2024 Active sildenafil citrate (VIAGRA) 100 MG Tablet Take 100 mg by mouth as needed. Active Active Problems No known active problems Family History Medical History Relation Name Comments Prostate Cancer Father Relation Name Status Comments Father Sister Alive Social History Tobacco Use Types Packs/Day Years Used Date Smoking Tobacco: Every Day Cigarettes 0.3 41.4 Started: 07/16/1983 Smokeless Tobacco: Current Tobacco Cessation:Ready to Q uit: Yes; Counseling Given: Not Answered Alcohol Use Standard Drinks/Week Comments Yes 0 (1 standard drink = 0.6 oz pur e alcohol) social Sex and Gender Information Value Date Recorded Sex Assigned at Not on file Legal Sex Male 7:49 PM CDT Gender Identity Not on file Sexual Orientation Not on file Last Filed Vital Signs Vital Sign Reading Time Taken Comments Blood Pressure 150/80 08/19/2024 8:01 AM BACK GRINDER Pulse 76 08/19/2024 8:01 AM BACK GRINDER Temperature 36.4 C (97.5 F) 08/19/2024 8:01 AM BACK GRINDER Respiratory Rate 17 08/19/2024 8:01 AM BACK GRINDER Oxygen Saturation 98% 08/19/2024 8:01 AM BACK GRINDER Inhaled Oxygen Concentration - - Weight 102.9 kg (226 lb 14.4 oz) 08/19/2024 8:01 AM BACK GRINDER Height 188 cm (6' 2) 08/19/2024 8:01 AM BACK GRINDER Body Mass Index 29.13 08/19/2024 8:01 AM BACK GRINDER Plan of Treatment Health Maintenance Due Date Last Done Comments Hepatitis C Virus (HCV) Screening 1966 Hepatitis B Immunization (1 of 3 - 19+ 3-dose series) 1985 Pneumococcal Immunization (5 0+ years) (1 of 2 - PCV) 1985 Colonoscopy 2011 Colorectal Cancer Screening 2011 Cologuard 2016 Immunochemical Fecal Occult Blood 2016 Zoster Immunization (1 of 2) 2016 PSA Discussion 2021 Influenza Immunization (#1) 03/16/202403/2017, 06/05/2016, 05/28/2014 SARS-COV-2 Immunization ( - 2023- season) 2024 Respiratory Syncytial Virus (RSV) Immunization (Adult) (1 - 1-dose 75+ series) 2041 TdaP Immunization Completed 03/22/2023, 03/18/2013 Meningococcal Immunization (ACWY) Aged Out No longer eligible b ased on patient's age to complete this topic Rotavirus Immunization Aged Out No lo nger eligible based on patient's age to complete this topic Insurance Care Teams Surgical Scheduler Relationship Specialty Start Date End Date Sofia Fajardo MD [address] [place] [address] PCP - General Internal Medicine 04/08/24 Petros Box MD [address] [place] [address] Consulting Physician Neurology 06/09/24 Toshia Watson, CRANKSHAFT STRAIGHTENER, DIRECTOR BIOMEDICAL ENGINEERING [address] [place] [address] Nurse Practitioner Advanced Practice Nurse 08/19/24
[2024-12-09 16:05] LABS: Hematocrit 39.1 % (42.0-52.0); Hemoglobin 12.9 g/dL (14.0-18.0); Mean Corpuscular Hemoglobin 30.4 pg (26-34); Mean Platelet Volume 9.2 fl (7.4-10.4); Platelet Count Result 329 k/mm3 (150-375); Red Blood Count 4.25 M/mm3 (4.6-6.20); Red Cell Distribution Width 12.7 % (11.5-14.5); White Blood Count 8.5 K/mm3 (4.5-10.0)
[2024-12-09 16:13] LABS: Add Urine Microscopic? NO; Appearance Urine Clear (Clear); Bilirubin Urine Negative (Negative); Blood Urine Negative (Negative); Color Urine Yellow (Yellow); Glucose Urine UA Negative (Negative); Ketones Urine Negative (Negative); Leukocyte Esterase Ur Negative LEU/UL (Negative); Nitrate Urine Negative (Negative); Protein Urine Negative (Negative); Specific Grav Ur 1.018 (1.001-1.035); Urobilinogen Urine 0.2 mg/dL (<2.0)
[2024-12-09 16:17] LABS: Hemoglobin A1C 5.6 % (<5.7)
[2024-12-09 16:20] LABS: Alanine Aminotransferase 26 U/L (6-50); Albumin Level 4.2 g/dL (3.5-5.1); Alkaline Phosphatase 86 U/L (38-126); Anion Gap 9 mmol/L (4-12); Aspartate Amino Transferase 40 U/L (17-59); Bilirubin,Total 0.3 mg/dL (0.2-1.3); Blood Urea Nitrogen 31 mg/dL (9-20); Calcium 8.8 mg/dL (8.4-10.2); Carbon Dioxide 24 mmol/L (22-30); Chloride 106 mmol/L (98-107); Cholesterol 148 mg/dL (0-200); Creatine Kinase 216 U/L (55-170); Estimated Glomerular Filt Rate 51; Glucose 101 mg/dL (65-110); HDL Direct 47 mg/dL; Potassium 3.9 mmol/L (3.4-5.0); Sodium 139 mmol/L (137-145); Triglycerides 166 mg/dL (<150)
[2024-12-09 16:31] LABS: LDL Cholesterol Direct 69 mg/dL
[2024-12-09 16:50] LABS: Prostate Specific Antigen 3.4 ng/mL (< OR = 4.0)
== END 2024-12-09 15:31 | disposition home or self-care (01) ==
PROVIDERS: PCP Internal Medicine; Visit Provider Internal Medicine
DX: Z12.5 Encounter for screening for malignant neoplasm of prostate (principal); E78.2 Mixed hyperlipidemia; I10 Essential (primary) hypertension; R73.01 Impaired fasting glucose; N39.0 Urinary tract infection, site not specified
CPT/HCPCS: 36415; 80053; 80061; 81003; 82550; 83036; 84153; 85027; G0103

== ENCOUNTER 2025-01-14 15:50 | Outpatient (CLI) | payer BC, SELFPAY ==
--- NOTE | ~2025-01-14 | US_ITS ---
EXAMINATION: US carotid duplex BI DATE: 01/16/2025 16:20 CDT INDICATION: Carotid stenosis TECHNIQUE: Grayscale, color Doppler, and pulsed Doppler images of the cervical carotid arteries were obtained. The degree of vessel stenosis is placed in one of the following categories: normal, <50%, 50-69%, >=7 0% but less than near-occlusion, near-occlusion, or total occlusion. Note that percent stenosis relative to normal distal artery lumen diameter is indirectly measured fro m velocity measurements as described originally by Harish, et al. Radiology 2003; 229:340-346 and upda rashel by Dashawn Melendez et al STROKE 2012;43(3);915-921. COMPARISON: None. FINDINGS: There is mild atherosclerosis of both carotid arteries. Peak systolic velocity (in cm/s) is detailed below RIGHT: Right common carotid artery (CCA): 80 cm/s. Right internal carotid artery (ICA) PSV: 118 cm/s. Right ICA end-diastolic velocity (EDV): 46 cm/s. Right ICA/CCA PSV ratio is 1.5. Right external carotid artery (ECA): 153cm/s. There is antegrade flow in the right vertebral artery LEFT: Left common carotid artery (CCA): 82 cm/s. Left internal carotid artery (ICA) PSV: 107 cm/s. Left ICA end-diastolic velocity (EDV): 35 cm/s. Left ICA/CCA PSV ratio is 1.3. Left external carotid artery (ECA): 193cm/s. There is antegrade flow in the left vertebral artery. IMPRESSION: 1. Less than 50% stenosis in the right internal carotid artery. 2. Less than 50% stenosis in the left internal carotid artery. Reviewed, dictated and finalized at location A.
--- OUTSIDE RECORDS SUMMARY | 2025-01-14 15:56 | XMS_ITS | Clinical Summary ---
Author Organization [facility] Address [address] [place] [address] Phone Care Team Providers Care Communication Equipment Mechanic Name Role Phone Sofia Fajardo MD Primary Care Provider [phone] Petros Box MD Unavailable [phone] Toshia Watson APRN, AUTO BODY REPAIRER Unavailable [phone] Allergies Active Allergy Reactions Criticality Noted Date [...] Used Date Smoking Tobacco: Every Day Cigarettes 0.2 41.5 Started: 07/16/1983 Smokeless Tobacco: Current Tobacco Cessation:Ready [...] Comments Blood Pressure 150/80 08/19/2024 8:01 AM CREW LEADER Pulse 76 08/19/2024 8:01 AM CREW LEADER Temperature 36.4 C (97.5 F) 08/19/2024 8:01 AM CREW LEADER Respiratory Rate 17 08/19/2024 8:01 AM CREW LEADER Oxygen Saturation 98% 08/19/2024 8:01 AM CREW LEADER Inhaled Oxygen Concentration - - Weight 102.9 kg (226 lb 14.4 oz) 08/19/2024 8:01 AM CREW LEADER Height 188 cm (6' 2) 08/19/2024 8:01 AM CREW LEADER Body Mass Index 29.13 08/19/2024 8:01 AM CREW LEADER Plan of Treatment Health Maintenance Due Date Last Done Comments Hepatitis C Virus (HCV) Screening 1966 Hepatitis B Immunization (1 of 3 - 19+ 3-dose series) 1985 Pneumococcal Immunization (5 0+ years) (1 of 2 - PCV) 1985 Cologuard 2011 Colonoscopy 2011 Colorectal Cancer Screening 2011 Immunochemical Fecal Occult Blood 2011 Zoster Immunization (1 of 2) 2016 PSA Discussion 2021 SARS-COV-2 Immunization ( season) 2024 Influenza Immunization (Seas on Ended) 2025 04/23/2017, 06/05/2016, 05/28/2014 Respiratory Syncytial Virus (RSV) Immunization (Adult) (1 - 1-dose 75+ series) 2041 TdaP Immunization Completed 03/22/2023, 03/18/2013 Human Papillomavirus (HPV) Immunization Aged Out No longer eligible b ased on patient's age to complete this topic Meningococcal Immunization (ACWY) Aged Out No longer eligible b ased on patient's age to complete this topic Rotavirus Immunization Aged Out No lo nger eligible based on patient's age to complete this topic Insurance Care Teams Communication Equipment Mechanic Relationship Specialty Start Date End Date Sofia Fajardo MD [address] [place] [address] PCP - General Internal Medicine 04/08/24 Petros Box MD [address] [place] [id number] Consulting Physician Neurology 06/09/24 Toshia Watson APRN, AUTO BODY REPAIRER [address] [place] [address] Nurse Practitioner Advanced Practice Nurse 08/19/24
[2025-01-14 18:09] LABS: Hematocrit 37.7 % (42.0-52.0); Hemoglobin 12.5 g/dL (14.0-18.0); Immature Granulocyte Percent A 0.4 % (0-0.5); Lymphocytes Absolute Auto 2.45 K/mm3 (0.9-3.2); Mean Corpuscular HGB Conc 33.2 g/dl (32-36); Mean Corpuscular Hemoglobin 30.3 pg (26-34); Mean Corpuscular Volume 91.3 fl (80-100); Nucleated Red Blood Cells Absolute Auto 0.000 K/mm3 (0.0-0.012); Nucleated Red Blood Cells Perc 0.0 % (0.0-0.2); Platelet Count Result 316 k/mm3 (150-375); Red Blood Count 4.13 M/mm3 (4.6-6.20); White Blood Count 9.2 K/mm3 (4.5-10.0)
[2025-01-14 18:23] LABS: Anion Gap 10 mmol/L (4-12); Blood Urea Nitrogen 33 mg/dL (9-20); Calcium 9.6 mg/dL (8.4-10.2); Carbon Dioxide 25 mmol/L (22-30); Chloride 104 mmol/L (98-107); Estimated Glomerular Filt Rate 46; Glucose 89 mg/dL (65-110); Potassium 3.7 mmol/L (3.4-5.0); Sodium 139 mmol/L (137-145)
[2025-01-14 18:30] LABS: Immunoglobulin A 532 mg/dL (70-400); Immunoglobulin G 589 mg/dL (700-1600); Immunoglobulin M 135 mg/dL (40-230)
[2025-01-15 08:55] LABS: Alanine Aminotransferase 26 U/L (6-50); Albumin Level 4.2 g/dL (3.5-5.1); Alkaline Phosphatase 71 U/L (38-126); Aspartate Amino Transferase 43 U/L (17-59); Bilirubin,Total 0.5 mg/dL (0.2-1.3); Total Protein 7.3 g/dL (6.3-8.2)
[2025-01-15 09:46] LABS: Vitamin B12. > 1000.0 pg/mL (239-931)
[2025-01-19 14:39] LABS: Kappa\\Lambda Light Chains 2.42 (0.26-1.65)
[2025-01-19 15:18] LABS: Albumin 4.4 g/dL (3.8-4.8); Gamma Globulin 0.6 g/dL (0.8-1.7)
== END 2025-01-14 15:51 | disposition home or self-care (01) ==
PROVIDERS: Internal Medicine Hematology; PCP Internal Medicine; Visit Provider Internal Medicine
DX: I65.23 Occlusion and stenosis of bilateral carotid arteries (principal)
CPT/HCPCS: 36415; 80048; 80053; 82607; 82784; 83521; 83615; 84155; 84165; 85025; 86334; 93880

== ENCOUNTER 2025-02-09 17:00 | Observation (INO) | payer BC, SELFPAY ==
--- OUTSIDE RECORDS SUMMARY | 2025-02-09 17:02 | XMS_ITS | Clinical Summary ---
Author Organization [facility] ([facility]ER[facility]) Address [address] [place] [address] Phone Care Team Providers Care Chicken Fancier Name Role Phone Sofia Fajardo MD Primary Care Provider [phone] Petros Box MD Unavailable [phone] Toshia Watson APRN, POSITION CLASSIFICATION SPECIALIST Unavailable [phone] Allergies Active Allergy Reactions Criticality Noted Date [...] Date Smoking Tobacco: Every Day Cigarettes 0.3 41.6 Started: 07/16/1983 Smokeless Tobacco: Current Tobacco Cessation:Ready [...] Comments Blood Pressure 150/80 08/19/2024 8:01 AM SAFETY TEACHER Pulse 76 08/19/2024 8:01 AM SAFETY TEACHER Temperature 36.4 C (97.5 F) 08/19/2024 8:01 AM SAFETY TEACHER Respiratory Rate 17 08/19/2024 8:01 AM SAFETY TEACHER Oxygen Saturation 98% 08/19/2024 8:01 AM SAFETY TEACHER Inhaled Oxygen Concentration - - Weight 102.9 kg (226 lb 14.4 oz) 08/19/2024 8:01 AM SAFETY TEACHER Height 188 cm (6' 2) 08/19/2024 8:01 AM SAFETY TEACHER Body Mass Index 29.13 08/19/2024 8:01 AM SAFETY TEACHER Plan of Treatment Health Maintenance Due Date [...] SARS-COV-2 Immunization ( season) 2024 Influenza Immunization (#1) 2025 10/0 03/2017, 06/05/2016, 05/28/2014 Respiratory Syncytial Virus (RSV) Immunization [...] patient's age to complete [place] [address] Care Teams Chicken Fancier Relationship Specialty Start Date End Date Sofia Fajardo MD [address] [place] [address] PCP - General Internal Medicine 04/08/24 Petros Box MD [address] [place] [id number] Consulting Physician Neurology 06/09/24 Toshia Watson APRN, POSITION CLASSIFICATION SPECIALIST [address] [place] [address] Nurse Practitioner Advanced Practice Nurse 08/19/24
[2025-02-09 17:14] VITALS: BP 143/81; PULSE 79; RESP 19; TEMP 36.7; O2SAT 97
--- NOTE | 2025-02-09 18:28 | ED_ITS ---
HPI - General Adult General Chief complaint: Unspecified Stated complaint: I'm going septic again. Time Seen by Provider: 02/09/25 20:41 History of Present Illness HPI narrative: Patient presents with several rashes, have been present to bilateral legs for a while that were rubbing on his boots, but today he started having new itchy rash that went up both arms, neck, and he is starting to have scratchy throat and difficulty speaking and breathing Related Data Home Medications ?Medication ?Instructions ?Recorded ?Confirmed ?Last Taken ?Type amlodipine 10 mg tablet 10 mg PO DAILY 03/04/24 02/09/25 02/09/25 History losartan 100 mg tablet 100 mg PO DAILY 03/04/24 02/09/25 02/09/25 History pravastatin 20 mg tablet 20 mg PO DAILY 03/04/24 02/09/25 02/09/25 History sildenafil 100 mg tablet 100 mg PO DAILY PRN Erectile 03/04/24 02/09/25 Unknown History Dysfunction diphenhydramine HCl 25 mg capsule 50 mg PO TID PRN allergy symptoms 02/09/25 02/09/25 02/09/25 History (Benadryl) magnesium 250 mg tablet 1,000 mg PO HS 02/09/25 02/09/25 02/08/25 History omeprazole magnesium 20 mg 20 mg PO DAILY 02/09/25 02/09/25 Unknown History tablet,delayed release (Prilosec OTC) Allergies Allergy/AdvReac Type Severity Reaction Status Date / Time prednisone Allergy Severe Unknown Verified 02/09/25 23:14 sulfamethoxazole (From Allergy Severe Anaphylaxis Verified 02/09/25 23:14 Bactrim) trimethoprim (From Bactrim) Allergy Severe Anaphylaxis Verified 02/09/25 23:14 Review of Systems 2 Review of Systems: All systems reviewed & are unremarkable except as noted in HPI and below PMFSH Past Medical History Medical History (Updated 02/10/25 @ 01:35 by Bhavya Leslie MD) Peripheral arterial occlusive disease Hallux valgus (acquired), right foot Hallux rigidus of right foot Hyperlipidemia Essential hypertension Surgical History Surgical History No significant past surgical history Family History Family History Father Esophageal cancer Malignant neoplasm of prostate Social History Social History Social History: Patient is a santos. He lives with his girlfriend. He has smoked 1.5 packs per day since he was a teenager. He drinks alcohol a couple of times a week in moderation. He denies illicit substance use. He served in the [employer] for many years during a couple of different worse. He does not have any children. Code status: Full code Surrogate decision maker: Toshia Grey (significant other) Smoking packs per day: 1.5 Smoking cigarettes per day: 30.0 Years smoked: 45 Smoking pack-years: 67.50 Smoking status: Current every day smoker Tobacco type: cigarettes Additional smoking assessment comments: patient is currently trying to stop smoking and uses nicotine patches Alcohol intake: current Drinks per week: 12 Substance use: never Substance use type: does not use Do You Feel Safe in your Home?: Yes Lack of Transportation: No Lack of Food: Never True Current Housing: I Have Housing Concerned About Future Housing: No Difficulty Paying Gas/Electric Bills: No Difficulty Paying for Meds: No Currently Unemployed: No Education: Decline to Answer Difficulty w/ Childcare or Family Care: No Spiritual care concerns: No Exam 2 Narrative: EXAMINATION OF ORGAN SYSTEMS/BODY AREAS: Constitutional: Vital signs per nursing GENERAL: Appears slightly anxious HEAD: Normal with no signs of head trauma. EYES: EOMI, conjunctiva normal ENT: Hearing grossly intact; hoarse voice LUNGS: Nonlabored breathing. HEART: [Regular rate and rhythm] ABD: [Soft], [nontender to palpation] EXT: Normal range of motion SKIN: Bilateral slightly erythematous rash lower shins; extensive urticaria bilateral arms, trunk, neck NEURO: [Alert and oriented x 3. No gross focal sensory or strength deficits.] PSYCH: Normal affect Course Vital Signs Vital signs: Vital Signs Temperature 98.0 F 02/09/25 17:14 Pulse Rate 79 02/09/25 17:14 Respiratory Rate 19 02/09/25 17:14 Blood Pressure 143/81 H 02/09/25 17:14 Pulse Oximetry 97 02/09/25 17:14 Oxygen Delivery Room Air 02/09/25 17:14 Temperature 97.9 F 02/10/25 00:08 Pulse Rate 55 L 02/10/25 00:08 Respiratory Rate 18 02/10/25 00:08 Blood Pressure 130/70 02/10/25 00:08 Pulse Oximetry 99 02/10/25 00:08 Oxygen Delivery Room Air 02/09/25 17:14 Medical Decision Making MDM Narrative Medical decision making narrative: MEDICAL DECISION MAKING AND COURSE IN THE ED WITH INTERPRETATION/REVIEW OF DIAGNOSTIC STUDIES: Electronic medical record was reviewed. Patient presented to the ED with a complaint of [possible allergic reaction or sepsis]. Vitals [were within acceptable limits]. Physical exam revealed urticaria with hoarse voice, concerning for anaphylaxis. Based on the patient's history and physical exam, my differential includes but is not limited to [allergic reaction, infection]. Patient and his , that he had a similar episode last year when he was found to be in septic shock with kidney injury and anaphylaxis.. He is given a dose of epinephrine with immediate improvement in his symptoms, also given dose of steroids. I do not have any obvious source of infection other than the rash on his bilateral lower extremities but I will start him on Ancef. On re-evaluation, the patient was feeling improved. [He] has not had worsening of symptoms here. Discussed with hospitalist for admission. Vital Signs Vital Signs: Vital Signs Temperature 98.0 F 02/09/25 17:14 Pulse Rate 79 02/09/25 17:14 Respiratory Rate 19 02/09/25 17:14 Blood Pressure 143/81 H 02/09/25 17:14 Pulse Oximetry 97 02/09/25 17:14 Oxygen Delivery Room Air 02/09/25 17:14 Temperature 97.9 F 02/10/25 00:08 Pulse Rate 55 L 02/10/25 00:08 Respiratory Rate 18 02/10/25 00:08 Blood Pressure 130/70 02/10/25 00:08 Pulse Oximetry 99 02/10/25 00:08 Oxygen Delivery Room Air 02/09/25 17:14 Lab Data 02/09/25 21:04 02/09/25 21:04 Labs: Lab Results 02/09/25 Range/Units 21:04 WBC 11.5 H (4.5-10.0) K/mm3 RBC 4.04 L (4.6-6.20) M/mm3 Hgb 12.2 L (14.0-18.0) g/dL Hct 37.9 L (42.0-52.0) % MCV 93.8 (80-100) fl MCH 30.2 (26-34) pg MCHC 32.2 (32-36) g/dl RDW 12.8 (11.5-14.5) % Plt Count 329 (150-375) k/mm3 MPV 9.3 (7.4-10.4) fl Immature Gran % (Auto) 0.4 (0-0.5) % Neut % (Auto) 56.8 (45.5-73.1) % Lymph % (Auto) 29.3 (18.3-44.2) % Juncos % (Auto) 7.6 (2.6-8.5) % Eos % (Auto) 5.4 H (0-4.4) % Baso % (Auto) 0.5 (0.2-1.2) % Lymph # (Auto) 3.35 H (0.9-3.2) K/mm3 Juncos # (Auto) 0.9 H (0.1-0.6) K/mm3 Eos # (Auto) 0.6 H (0-0.3) K/mm3 Baso # (Auto) 0.1 (0.0-0.1) K/mm3 Abs Immat Gran (auto) 0.05 H (0.00-0.031) K/mm3 Absolute Neuts (auto) 6.5 (1.3-6.7) K/mm3 Absolute Nucleated RBC 0.000 (0.0-0.012) K/mm3 Nucleated RBC % 0.0 (0.0-0.2) % Sodium 139 (137-145) mmol/L Potassium 4.1 (3.4-5.0) mmol/L Chloride 107 (98-107) mmol/L Carbon Dioxide 23 (22-30) mmol/L Anion Gap 9 (4-12) mmol/L BUN 29 H (9-20) mg/dL Creatinine 1.65 H (0.7-1.3) mg/dL Estim Creat Clear Calc 51 ml/min Estimated GFR 43 L (59 - ) Glucose 100 (65-110) mg/dL Lactic Acid 0.9 (0.7-2.0) mmol/L Calcium 9.7 (8.4-10.2) mg/dL Total Bilirubin 0.2 (0.2-1.3) mg/dL AST 38 (17-59) U/L ALT 32 (6-50) U/L Alkaline Phosphatase 73 (38-126) U/L Total Protein 7.2 (6.3-8.2) g/dL Albumin 4.2 (3.5-5.1) g/dL Critical Care Time Critical Care Time Critical Care Time: Yes Total Critical Care Time: 31 Discharge Plan Discharge Clinical Impression: Anaphylactic reaction Qualifiers: Encounter type: initial encounter Qualified Code(s): T78.2XXA - Anaphylactic shock, unspecified, initial encounter Patient Disposition: Still a Patient Condition: Stable
[2025-02-09 20:30] VITALS: BP 161/75; PULSE 58; RESP 15; TEMP 36.7; O2SAT 100
[2025-02-09 20:32] VITALS: PULSE 58
[2025-02-09] MEDS: EPINEPHrine HCL INJ 1 MG/ML AMPUL 0.3 MG IM (20:50)
[2025-02-09 20:59] VITALS: RESP 15; O2SAT 99
[2025-02-09] MEDS: dexAMETHasone SOD PHOS INJ 10 MG/ML 1 ML VIAL IV PUSH (21:07)
[2025-02-09 21:17] LABS: Hematocrit 37.9 % (42.0-52.0); Hemoglobin 12.2 g/dL (14.0-18.0); Immature Granulocyte Percent A 0.4 % (0-0.5); Lymphocytes Absolute Auto 3.35 K/mm3 (0.9-3.2); Mean Corpuscular HGB Conc 32.2 g/dl (32-36); Mean Corpuscular Hemoglobin 30.2 pg (26-34); Mean Corpuscular Volume 93.8 fl (80-100); Nucleated Red Blood Cells Absolute Auto 0.000 K/mm3 (0.0-0.012); Nucleated Red Blood Cells Perc 0.0 % (0.0-0.2); Platelet Count Result 329 k/mm3 (150-375); Red Blood Count 4.04 M/mm3 (4.6-6.20); White Blood Count 11.5 K/mm3 (4.5-10.0)
[2025-02-09 21:32] LABS: Alanine Aminotransferase 32 U/L (6-50); Albumin Level 4.2 g/dL (3.5-5.1); Alkaline Phosphatase 73 U/L (38-126); Anion Gap 9 mmol/L (4-12); Aspartate Amino Transferase 38 U/L (17-59); Bilirubin,Total 0.2 mg/dL (0.2-1.3); Blood Urea Nitrogen 29 mg/dL (9-20); Calcium 9.7 mg/dL (8.4-10.2); Carbon Dioxide 23 mmol/L (22-30); Chloride 107 mmol/L (98-107); Estimated CRCL calculation 51 ml/min; Estimated Glomerular Filt Rate 43; Glucose 100 mg/dL (65-110); Potassium 4.1 mmol/L (3.4-5.0); Sodium 139 mmol/L (137-145); Total Protein 7.2 g/dL (6.3-8.2)
--- OUTSIDE RECORDS SUMMARY | 2025-02-09 21:41 | XMS_ITS | Clinical Summary ---
Author Organization [facility] Address [address] [place] [address] Phone Care Team Providers Care Automotive Glass Specialist Name Role Phone Sofia Fajardo MD Primary Care Provider [phone] Petros Box MD Unavailable [phone] Toshia Watson APRN, WRAPPER STRIPPER Unavailable [phone] Allergies Active Allergy Reactions Criticality Noted Date [...] Comments Blood Pressure 150/80 08/19/2024 8:01 AM MOLD BURNER Pulse 76 08/19/2024 8:01 AM MOLD BURNER Temperature 36.4 C (97.5 F) 08/19/2024 8:01 AM MOLD BURNER Respiratory Rate 17 08/19/2024 8:01 AM MOLD BURNER Oxygen Saturation 98% 08/19/2024 8:01 AM MOLD BURNER Inhaled Oxygen Concentration - - Weight 102.9 kg (226 lb 14.4 oz) 08/19/2024 8:01 AM MOLD BURNER Height 188 cm (6' 2) 08/19/2024 8:01 AM MOLD BURNER Body Mass Index 29.13 08/19/2024 8:01 AM MOLD BURNER Plan of Treatment Health Maintenance Due Date [...] to complete this topic Insurance Care Teams Automotive Glass Specialist Relationship Specialty Start Date End Date Sofia Fajardo MD [address] [place] [address] PCP - General Internal Medicine 04/08/24 Petros Box MD [address] [place] [id number] Consulting Physician Neurology 06/09/24 Toshia Watson APRN, WRAPPER STRIPPER [address] [place] [address] Nurse Practitioner Advanced Practice Nurse 08/19/24
[2025-02-09] MEDS: ceFAZolin 2 GM/D5W 50 ML 2 GM/50 ML BAG IVPB (22:52)
[2025-02-09] MEDS: LACTATED RINGERS 1,000 ML 999 ML IV CONT (22:52)
--- NOTE | 2025-02-09 23:13 | ADMGEN ---
This patient, Luiz Montague, was admitted to Medical Room 251-01. Patient/family oriented to hospital policies and general routines including ID bracelet, bed and alarms, visiting hours, pain management, procedures, bathroom and other care routines, personal items, smoking policy, room service/diet, and visiting hours. Information on how to activate the Rapid Response Team has been discussed. Patient/Family are encouraged to report perceived risks to care and to ask questions if they do not understand what they are told or what they should do.
[2025-02-09 23:18] VITALS: BP 161/75; PULSE 58; RESP 15; O2SAT 100
[2025-02-09 23:21] VITALS: BMI 28.1
[2025-02-10] VITALS: PULSE 62
[2025-02-10 00:08] VITALS: BP 130/70; PULSE 55; RESP 18; TEMP 36.6; O2SAT 99
--- NOTE | 2025-02-10 02:50 | PM.IMHP ---
H&P: HPI History of Present Illness Date/Time: 02/10/25 02:50 Chief Complaint: Rash Narrative: 59-year-old male with history of hyperlipidemia, hypertension who presents to [facility] ER on 02/09/2025 with a complaint of several rashes. For a week now he has been wearing new work boots he developed rash on his bilateral lower legs. They are not painful/itchy/weeping. However on the day of admission he reports having a new itchy rash under his armpits, arms, on the neck. Indoor scratchy throat and difficulty speaking in breathing. He was given Toradol, epinephrine, Decadron, lactated Ringer's 1 L, cefazolin and his scratchy throat went away. He had no more difficulties breathing or speaking. His rash improved greatly. 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 He has smoked 1.5 packs per day since he was a teenager. He drinks alcohol a couple of times a week in moderation. He denies illicit substance use. He served in the [employer] for many years during a couple of different worse. He does not have any children. Code status: Full code Surrogate decision maker: Toshia Grey (significant other) Smoking packs per day: 1.5 Smoking cigarettes per day: 30.0 Years smoked: 45 Smoking pack-years: 67.50 Smoking status: Current every day smoker Tobacco type: cigarettes Additional smoking assessment comments: patient is currently trying to stop smoking and uses nicotine patches Alcohol intake: current Drinks per week: 12 Substance use: never Substance use type: does not use Do You Feel Safe in your Home?: Yes Lack of Transportation: No Lack of Food: Never True Current Housing: I Have Housing Concerned About Future Housing: No Difficulty Paying Gas/Electric Bills: No Difficulty Paying for Meds: No Currently Unemployed: No Education: Decline to Answer Difficulty w/ Childcare or Family Care: No Spiritual care concerns: No Meds Home Medications and Allergies Home Medications ?Medication ?Instructions ?Recorded ?Confirmed ?Type amlodipine 10 mg tablet 10 mg PO DAILY 03/04/24 02/09/25 History losartan 100 mg tablet 100 mg PO DAILY 03/04/24 02/09/25 History pravastatin 20 mg tablet 20 mg PO DAILY 03/04/24 02/09/25 History sildenafil 100 mg tablet 100 mg PO DAILY PRN Erectile 03/04/24 02/09/25 History Dysfunction diphenhydramine HCl 25 mg capsule 50 mg PO TID PRN allergy symptoms 02/09/25 02/09/25 History (Benadryl) magnesium 250 mg tablet 1,000 mg PO HS 02/09/25 02/09/25 History omeprazole magnesium 20 mg 20 mg PO DAILY 02/09/25 02/09/25 History tablet,delayed release (Prilosec OTC) Allergies Allergy/AdvReac Type Severity Reaction Status Date / Time prednisone Allergy Severe Unknown Verified 02/09/25 23:14 sulfamethoxazole (From Allergy Severe Anaphylaxis Verified 02/09/25 23:14 Bactrim) trimethoprim (From Bactrim) Allergy Severe Anaphylaxis Verified 02/09/25 23:14 Vital Signs Vital Signs - 24 hr 02/09/25 17:14 02/09/25 20:30 02/09/25 20:32 Temperature 98.0 F 98.1 F Pulse Rate 79 58 L 58 L Respiratory Rate 19 15 Blood Pressure 143/81 H 161/75 H Pulse Oximetry 97 100 Oxygen Delivery Room Air 02/09/25 20:59 02/09/25 23:18 02/10/25 00:00 Temperature Pulse Rate 58 L 62 Respiratory Rate 15 15 Blood Pressure 161/75 H Pulse Oximetry 99 100 Oxygen Delivery 02/10/25 00:08 Temperature 97.9 F Pulse Rate 55 L Respiratory Rate 18 Blood Pressure 130/70 Pulse Oximetry 99 Oxygen Delivery Exam Const: General: comfortable and no acute distress Other: A&O x3 HENMT: Mouth: Yes moist mucous membranes Other: No edema Eyes: Pupils: Equal, round and reactive pupils present Neck: Neck: supple Resp: Effort & Inspection: normal respiratory effort Auscultation: clear to auscultation bilaterally Cardio: Rate: regular rate Rhythm: regular rhythm GI: Inspection: non-distended GI Palp: Yes Soft to palpation and No Tenderness to palpation present (GI) Skin: Other: Blanching coalescing macular rash over the anterior aspects of bilateral forearms, axillary regions and less so over the shoulders and neck. Extrem: General: no edema H&P: Results Labs Labs: Short CBC 02/09/25 Range/Units 21:04 WBC 11.5 H (4.5-10.0) K/mm3 Hgb 12.2 L (14.0-18.0) g/dL Hct 37.9 L (42.0-52.0) % Plt Count 329 (150-375) k/mm3 BMP 02/09/25 21:04 Sodium 139 Potassium 4.1 Chloride 107 Carbon Dioxide 23 BUN 29 H Creatinine 1.65 H Glucose 100 Calcium 9.7 Liver Function 02/09/25 Range/Units 21:04 Total Bilirubin 0.2 (0.2-1.3) mg/dL AST 38 (17-59) U/L ALT 32 (6-50) U/L Alkaline Phosphatase 73 (38-126) U/L Albumin 4.2 (3.5-5.1) g/dL Assessment and Plan Assessment and plan (1) Anaphylactic reaction: Qualifiers: Encounter type: initial encounter Qualified Code(s): T78.2XXA - Anaphylactic shock, unspecified, initial encounter Code(s): T78.2XXA - Anaphylactic shock, unspecified, initial encounter Status: Acute Plan 59-year-old male with history of hyperlipidemia, hypertension who presents to [facility] ER on 02/09/2025 with a complaint of several rashes. For a week now he has been wearing new work boots he developed rash on his bilateral lower legs. They are not painful/itchy/weeping. However on the day of admission he reports having a new itchy rash under his armpits, arms, on the neck. Indoor scratchy throat and difficulty speaking in breathing. Has not used new detergent recently. He was given Toradol, epinephrine, Decadron, lactated Ringer's 1 L, cefazolin and his scratchy throat went away. He had no more difficulties breathing or speaking. His rash improved greatly. ----- Improved. Scheduled Benadryl. Monitor respiratory status. Patient requests cream for his rash as they are weeping a bit. Start triamcinolone. Patient wishes to be full code Hospitalist MIPS Advance Care Plan I have confirmed that the patient's Advanced Care Plan is present, code status is documented, or surrogate decision maker is listed in patient medical record.: Yes Medication Reconciliation I have utilized all available resources to obtain, update and review the patients current medications (includes all prescriptions, OTC, herbals, cannabis, and nutritional supplements).: Yes
[2025-02-10 04:00] VITALS: PULSE 55
[2025-02-10] MEDS: diphenhydrAMINE HCl CAP 25 MG CAPSULE PO ×2 (04:29→11:34)
[2025-02-10 05:23] LABS: Hematocrit 37.5 % (42.0-52.0); Hemoglobin 12.1 g/dL (14.0-18.0); Immature Granulocyte Percent A 0.6 % (0-0.5); Lymphocytes Absolute Auto 0.92 K/mm3 (0.9-3.2); Mean Corpuscular HGB Conc 32.3 g/dl (32-36); Mean Corpuscular Hemoglobin 30.3 pg (26-34); Mean Corpuscular Volume 94.0 fl (80-100); Nucleated Red Blood Cells Absolute Auto 0.000 K/mm3 (0.0-0.012); Nucleated Red Blood Cells Perc 0.0 % (0.0-0.2); Platelet Count Result 302 k/mm3 (150-375); Red Blood Count 3.99 M/mm3 (4.6-6.20); White Blood Count 8.1 K/mm3 (4.5-10.0)
[2025-02-10 05:34] VITALS: BP 142/65; PULSE 60; RESP 18; TEMP 36.3; O2SAT 98
[2025-02-10 05:46] LABS: Anion Gap 10 mmol/L (4-12); Blood Urea Nitrogen 28 mg/dL (9-20); Calcium 9.6 mg/dL (8.4-10.2); Carbon Dioxide 22 mmol/L (22-30); Chloride 105 mmol/L (98-107); Estimated CRCL calculation 69 ml/min; Estimated Glomerular Filt Rate > 60; Glucose 185 mg/dL (65-110); Magnesium 1.9 mg/dL (1.6-2.3); Potassium 4.6 mmol/L (3.4-5.0); Sodium 137 mmol/L (137-145)
[2025-02-10] MEDS: TRIAMCINOLONE ACET 0.1% CREAM 15 GM TUBE 1 APPLIC TOPICAL (08:42)
[2025-02-10] MEDS: PANTOPRAZOLE 40 MG TABLET PO (08:43)
[2025-02-10] MEDS: PRAVASTATIN SODIUM 20 MG TABLET PO (08:43)
[2025-02-10 10:48] VITALS: PULSE 54
--- NOTE | 2025-02-10 10:59 | P.DS_ITS ---
DS: Admitting Diagnosis Discharge Date 02/10/2025 Admitting Diagnosis Anaphylacic reaction DS: Discharge Diagnosis Discharge Diagnosis (1) Anaphylactic reaction: Qualifiers: Encounter type: initial encounter Qualified Code(s): T78.2XXA - Anaphylactic shock, unspecified, initial encounter Code(s): T78.2XXA - Anaphylactic shock, unspecified, initial encounter Status: Acute Assessment and Plan: * Continue a dose of steroids at home (Decadron) * Follow up with PCP to have allergy testing performed. * Hold ARB (Losartan) until following up with PCP, lower incidence of allergy related problems related to ARB's however, it is a potential. * Epi pen prescribed and strict instructions for when to use. * Return to ER precautions discussed with pt. (2) Rash: Code(s): R21 - Rash and other nonspecific skin eruption Status: Acute Assessment and Plan: * Rash to BLE improving. * Instructed pt to leave skin open to air and to not use vaseline on the skin in that area anymore. * The rash on the BLE and in the Bilateral axilla appear to be more of a heat related rash and not an allergic/urticarial rash. DS: Summary Hospital Course Reason for hospitalization: Concern for allergic reaction/anaphylaxis Hospital Course: This is a pleasant 59-year-old male patient with past medical history hyperlipidemia, hypertension, peripheral arterial disease who had septic shock last year who presented to the emergency room last evening with complaints of having a rash to the bilateral lower extremities, a rash underneath his bilateral axillary regions and a scratchy sensation in his throat that he described is making it difficult for him to breathe or swallow. Patient did not present with overt angioedema, swelling of the tongue or airway occlusion in presented with stable vital signs. He patient gives the following history that he recently started wearing a new pair of boots to work that rubbed on his skin in were tight and hot holding sweat to the surface of the skin. In order to prevent irritation of the boot to rubbing on the skin patient started applying Vaseline to the area and wrapping it or wearing thick, mid calf rise socks, therefore holding in wetness and warmth. He has had this rash on his bilateral lower extremities for approximately 2 weeks. It is red, itchy and no open areas or edema. In addition patient has a red rash in the bilateral axillary regions that does not appear to be allergic in nature, but instead more of a heat related rash. Patient denies any itchiness or scratchiness or swelling of the oral airway until yesterday. Any emergency room he was administered medications of Toradol, epinephrine, Decadron, LR and Ancef and he reports that his scratchy throat went away and his rash started to improve. He was admitted for observation to the hospital and observed overnight to have normal VS and no difficulty breathing/swallowing and no requirement of supplemental oxygen. Today I reviewed medications with patient and he does not take an TIFFANY-inhibitor, however he does take losartan. Although there is a lower incidence of losartan causing anaphylaxis, this patient does have a history of anaphylaxis to previous medications, the preference is to have him hold his Losartan until he follows up with his PCP as his BP is currently stable. In addition I will prescribe him an EpiPen with instructions to use only if swelling around the mouth or inside the mouth of the tongue with difficulty swallowing or breathing. It is made clear that this is not to be used for seasonal allergies but rather systemic allergies. In addition patient will be discharged home on a course of Decadron which he tolerated well in the emergency room and in the inpatient setting. He is advised to leave his skin on his legs open to air, to stop the application of Vaseline and only wrap as needed. He will also be prescribed a topical steroid to use on his legs and his rash in his axillary regions. He appears stable without any systemic symptoms and no acute allergic reaction. Discharged at this time to home. See detailed discharge instructions. Status at Discharge Cognitive/behavioral status at discharge: At Baseline Functional status at discharge: independent ambulation Overall status at discharge: patient is back to baseline Time Spent with Patient Time attestation: Total time spent providing and/or coordinating discharge services: Time spent: Greater than 30 minutes Specific discharge activities: medications, side effects of meds, follow up, return to ER precautions Exam Const: General: comfortable and no acute distress HENMT: Face/Nose/Sinus: Normal nares present Mouth: Yes moist mucous membranes Other: No lesions, swelling or erythema noted in the oropharynx, no uvular shift, no soft palate edema. Tongue without edema. Pt swallowing secretions normally and no angioedema noted. Eyes: General: appearance normal, both eyes and all related structures Sclera: sclerae normal Pupils: Equal, round and reactive pupils present EOM: EOMs intact bilaterally Neck: Neck: supple and no JVD Carotids: no bruits Lymphatic: lymphadenopathy not noted Resp: Effort & Inspection: normal respiratory effort Auscultation: clear to auscultation bilaterally Other: Speaking in full, unbroken sentences. Cardio: Rate: regular rate Rhythm: regular rhythm Heart sounds: no gallops, no murmurs and no rubs GI: GI Palp: Yes Soft to palpation and No Tenderness to palpation present (GI) Auscultation: normal bowel sounds Skin: Lesions: no lesions noted Rashes: rashes noted (Axilla - red, irritated rash. NO vesicles/pustule/papule/urticaria.) Wounds: no wounds Other: Rash also and bilateral extremities from the sock line which is half way to the tibial plateau down to the ankle that is red, also without any vesicles/pustules/papules/urticaris. The skin appears dry and irritated. There is no open lesions or drainage noted. Neuro: General: gait normal Motor exam (neuro): 5/5 motor strength present throughout and Normal motor muscle tone present throughout Sensory Exam: normal sensation Extrem: General: normal to inspection, no edema and no pedal edema Other: Freely and equally MAEW without deficit. Psych: Mental Status: mental status grossly normal DS: Data Data Completed and Pending Labs on day of discharge: Labs from last 24 hours 02/10/25 02/09/25 05:10 21:04 WBC 8.1 11.5 H RBC 3.99 L 4.04 L Hgb 12.1 L 12.2 L Hct 37.5 L 37.9 L MCV 94.0 93.8 MCH 30.3 30.2 MCHC 32.3 32.2 RDW 12.5 12.8 Plt Count 302 329 MPV 9.1 9.3 Immature Gran % (Auto) 0.6 H 0.4 Neut % (Auto) 86.5 H 56.8 Lymph % (Auto) 11.4 L 29.3 [place] % (Auto) 1.4 L 7.6 Eos % (Auto) 0.0 5.4 H Baso % (Auto) 0.1 L 0.5 Lymph # (Auto) 0.92 3.35 H [place] # (Auto) 0.1 0.9 H Eos # (Auto) 0.0 0.6 H Baso # (Auto) 0.0 0.1 Abs Immat Gran (auto) 0.05 H 0.05 H Absolute Neuts (auto) 7.0 H 6.5 Absolute Nucleated RBC 0.000 0.000 Nucleated RBC % 0.0 0.0 Sodium 137 139 Potassium 4.6 4.1 Chloride 105 107 Carbon Dioxide 22 23 Anion Gap 10 9 BUN 28 H 29 H Creatinine 1.21 1.65 H Estim Creat Clear Calc 69 51 Estimated GFR > 60 43 L Glucose 185 H 100 Lactic Acid 0.9 Calcium 9.6 9.7 Magnesium 1.9 Total Bilirubin 0.2 AST 38 ALT 32 Alkaline Phosphatase 73 Total Protein 7.2 Albumin 4.2 Discharge Plan Discharge Attending physician on discharge: Anthony Bhagat Consulting providers: Sarah Gonzáles Discharging Clinician: Sarah Gonzáles Anticipated Discharge Date/Time: 02/10/25 11:18 Patient Disposition: Home Activity: as tolerated Diet: heart healthy Wound Care Instructions: follow printed instructions Discharge Instructions: Thank you for allowing us to care for you in the hospital. You were treated for a potential allergic reaction. There are some very specific instructions that we would like you to follow. - The rash to the lower legs, is directly from your boots rubbing against the skin and then application of other agents that are keeping the areas wet and sweaty. This is causing a heat type rash, and not likely an allergic reaction. - The rash in the axillary regions (armpits) is of the same heat type rash and not likely an allergic reaction. - For the rash in the axillary regions and on the lower legs, you are being prescribed a cream to apply. It will help with itching and irritation. It is very important that you KEEP THE AREAS DRY AND CLEAN AT ALL TIMES. DO NOT WEAR CONSTRICTIVE CLOTHING IN THOSE AREAS, ESPECIALLY IN THE EXTREME HEAT. - For the concern of the potential airway compromise as you stated you had difficulty with talking, etc. You are being prescribed several different medications. 1) EpiPen - ONLY TAKE IF YOU HAVE DIFFICULTY BREATHING DUE TO SWELLING INSIDE YOUR MOUTH OR AROUND YOUR MOUTH. DO NOT TAKE IT FOR A RASH ONLY. If you do use it, you must present to an emergency room right away. 2) Decadron - This is an oral steroid that you will take for several days at home. You tolerated it well here in the hospital, so we know you are not allergic to it. Take as ordered. - STOP TAKING YOUR LOSARTAN UNTIL YOU FOLLOW UP WITH YOUR PCP. LOSARTAN IS A MEDICATION THAT CAN CAUSE RANDOM SWELLING AND AIRWAY COMPROMISE, ALTHOUGH I HAVE A LOW SUSPICION THAT THIS OCCURRED, IT IS IMPORTANT THAT YOU DO NOT CONTINUE IT UNTIL YOU FOLLOW UP WITH DR. HENRIQUEZ. - Continue all other medications and treatments and follow up with your PCP in the next 7 days without fail, as I suggest you have allergy testing. Patient Language: Trinidadian Stand Alone Forms: General Discharge Information Follow-up/Referrals: Sofia Henriquez MD [Primary Care Provider] - 1 Week (Call for appointment. Needs allergy testing and needs to be seen within one week.) Discharge Medications: New diphenhydramine HCl 25 mg Capsule 25 mg PO Q6HR 2 Days Qty: 8 0RF triamcinolone acetonide 0.1 % Cream 1 applic topical Q12HR Qty: 60 0RF dexamethasone 4 mg tablet 4 mg PO DAILY Qty: 10 0RF epinephrine [Auvi-Q] 0.3 mg/0.3 mL auto-injector 0.3 mg IM ONCE Qty: 2 1RF Rx Instructions: as a single dose; may repeat once. Take for swelling around or inside mouth or difficulty breathing Continued diphenhydramine HCl [Benadryl] 25 mg capsule 50 mg PO TID PRN (Reason: allergy symptoms) omeprazole magnesium [Prilosec OTC] 20 mg tablet,delayed release (DR/EC) 20 mg PO DAILY magnesium 250 mg tablet 1,000 mg PO HS amlodipine 10 mg tablet 10 mg PO DAILY pravastatin 20 mg tablet 20 mg PO DAILY sildenafil 100 mg Tablet 100 mg PO DAILY PRN (Reason: Erectile Dysfunction) Rx Instructions: administer 30 minutes to 4 hours before activity Held losartan 100 mg tablet 100 mg PO DAILY Hold Instructions: Resume on 03/15/25. Hold until following up with your PCP. Date of admission: 02/09/25 21:56 Primary Care Provider: Sofia Henriquez Admitting Provider: Ysabel Harvey Attending physician on admission: Ysabel Harvey Condition: Stable Quality If No VTE Prophylaxis Answer both mechanical and pharmacologic: Reason no mechanical VTE proph: low risk/not indicated Reason no pharmacologic proph: low risk/not indicated Hospitalist MIPS Heart Failure (Exclusion) Patient has history of Heart Transplant or Left Ventricular Assistive Device?: No IF YES, STOP HERE Heart Failure (Qualifier) Patient has current or prior documentation of LVEF less than or equal to 40%, or mod/servere depressed LVSF?: No IF NO, STOP HERE
[2025-02-10 12:00] VITALS: PULSE 66
--- NOTE | 2025-02-10 13:53 | PC.NURSE ---
On 02/10/25, the RN, Madisyn, provided care and completed [facility] documentation on this patient. I have reviewed the RN's documentation and agree with the findings.
== END 2025-02-10 13:45 | disposition home or self-care (01) ==
LOC: ANHED 21:40 → ANH2MED 02-10 06:37
PROVIDERS: Admitting Provider General Practice; Emergency Provider Emergency Medicine; PCP Internal Medicine; Visit Provider Family Medicine
DX: T78.2XXA Anaphylactic shock, unspecified, initial encounter (principal); E78.5 Hyperlipidemia, unspecified; I10 Essential (primary) hypertension; F17.210 Nicotine dependence, cigarettes, uncomplicated
CPT/HCPCS: 36415; 80048; 80053; 83605; 83735; 85025; 87040; 96361; 96365; 96372; 96375; 99285; A9270; G0378; J0166; J0690; J1100; J7120

== ENCOUNTER 2025-02-23 00:35 | Day surgery (SDC) | payer BC, SELFPAY ==
[2025-02-20 12:01] VITALS: BMI 27.5
--- NOTE | ~2025-02-23 | BM_ITS ---
EXAMINATION: CCL bone marrow biopsy diag ORDER COMPLETED DATE: 02/23/2025 15:48 INDICATION: Anemia TECHNIQUE: A time-out was performed to verify the patient's name, date of , and procedure to b e performed. The procedure including the risks and benefits was discussed with the patient. Risks dis cussed included bleeding, infection, nerve injury and allergic reaction. The patient understood the r isks and agreed to proceed. The skin overlying the left posterior iliac spine was prepped and draped in usual sterile fashion. Anesthetic was administered with 1% lidocaine subcutaneously. Moderate con scious sedation was achieved with 50 mcg fentanyl IV and 1 mg of Versed IV. An 11 gauge needle was in serted into the left ilium with fluoroscopic guidance. Bone marrow was aspirated. An 8 gauge needle w as then inserted into the left ilium with fluoroscopic guidance. A core bone marrow biopsy was obtain ed. The needle was removed and the entry site was cleaned and dressed. There were no immediate compl ications. A total of 0 fluoroscopic images were recorded. Fluoroscopy exposure time was 0.1 minutes. Total DAP was 1.01 mGycm^2. FINDINGS: Real-time fluoroscopy demonstrates the biopsy needle tip overlying the left posterior iliac spine. IMPRESSION: 1. Successful fluoroscopic guided bone marrow aspiration. 2. Successful fluoroscopic guided bone marrow biopsy. Reviewed, dictated and finalized at location A.
--- OUTSIDE RECORDS SUMMARY | 2025-02-23 00:38 | XMS_ITS | Clinical Summary ---
Author Organization [facility] Address [address] [place] [address] Phone Care Team Providers Care Associate Manager Name Role Phone Sofia Fajardo MD Primary Care Provider [phone] Petros Box MD Unavailable [phone] Toshia Watson APRN, [employer] Unavailable [phone] Allergies Active Allergy Reactions Criticality Noted Date [...] Comments Blood Pressure 150/80 08/19/2024 8:01 AM OB GYN Pulse 76 08/19/2024 8:01 AM OB GYN Temperature 36.4 C (97.5 F) 08/19/2024 8:01 AM OB GYN Respiratory Rate 17 08/19/2024 8:01 AM OB GYN Oxygen Saturation 98% 08/19/2024 8:01 AM OB GYN Inhaled Oxygen Concentration - - Weight 102.9 kg (226 lb 14.4 oz) 08/19/2024 8:01 AM OB GYN Height 188 cm (6' 2) 08/19/2024 8:01 AM OB GYN Body Mass Index 29.13 08/19/2024 8:01 AM OB GYN Plan of Treatment Health Maintenance Due Date [...] to complete this topic Insurance Care Teams Associate Manager Relationship Specialty Start Date End Date Sofia Fajardo MD [address] [place] [address] PCP - General Internal Medicine 04/08/24 Petros Box MD [address] [place] [id number] Consulting Physician Neurology 06/09/24 Toshia Watson APRN, [employer] [address] [place] [address] Nurse Practitioner Advanced Practice Nurse 08/19/24
[2025-02-23 07:30] VITALS: BP 160/75; PULSE 52; RESP 16; TEMP 36.6; O2SAT 100
--- NOTE | 2025-02-23 07:30 | BM_PTH ---
PATIENT: Luiz Montague [id number] AGE/SX: 59/M ROOM: RE02/23/[address]: Hossein Knapp MD : [id number] BED: DIS: 02/23/2025 SPEC #: [id number] RECD: 02/23/25 10:49 STATUS: QUYNH RE #: [id number] TORIE: 02/23/25 07:[address]: Jarrett Meadows DEPT: [facility] Bone Marrow RECD BY: Anaid Mckeon ENTERED: 02/23/25 10:50 SP TYPE: Bone Marro OTHR DR: MD Sofia Hudson MD Tissues: A - Bone Marrow Aspiration B - Bone Marrow Biopsy Procedures: Unstained Slides Hematoxylin and Eosin Stain Gross and Microscopic Level 4 Bone Marrow Smear Decalcification Iron Stain
[2025-02-23 07:36] LABS: Hematocrit 37.4 % (42.0-52.0); Hemoglobin 12.3 g/dL (14.0-18.0); Immature Granulocyte Percent A 0.6 % (0-0.5); Lymphocytes Absolute Auto 2.06 K/mm3 (0.9-3.2); Mean Corpuscular HGB Conc 32.9 g/dl (32-36); Mean Corpuscular Hemoglobin 30.7 pg (26-34); Mean Corpuscular Volume 93.3 fl (80-100); Nucleated Red Blood Cells Absolute Auto 0.000 K/mm3 (0.0-0.012); Nucleated Red Blood Cells Perc 0.0 % (0.0-0.2); Platelet Count Result 270 k/mm3 (150-375); Red Blood Count 4.01 M/mm3 (4.6-6.20); White Blood Count 9.6 K/mm3 (4.5-10.0)
[2025-02-23 07:47] LABS: INR 1.0; Prothrombin Time 12.8 Seconds (11.1-14.7)
--- NOTE | 2025-02-23 10:30 | P.SEDATION_ITS ---
Moderate Sedation Note-Pt Data Patient Data Diagnosis: anemia Present Complaint: anemia Procedure to be performed/Plan: bone marrow biopsy Allergies Allergy/AdvReac Type Severity Reaction Status Date / Time prednisone Allergy Severe Unknown Verified 02/20/25 12:16 sulfamethoxazole (From Allergy Severe Anaphylaxis Verified 02/20/25 12:16 Bactrim) trimethoprim (From Bactrim) Allergy Severe Anaphylaxis Verified 02/20/25 12:16 Home Medications ?Medication ?Instructions ?Recorded ?Confirmed ?Type amlodipine 10 mg tablet 10 mg PO DAILY 03/04/24 02/20/25 History losartan 100 mg tablet 100 mg PO DAILY 03/04/24 02/09/25 History pravastatin 20 mg tablet 20 mg PO DAILY 03/04/24 02/20/25 History sildenafil 100 mg tablet 100 mg PO DAILY PRN Erectile 03/04/24 02/20/25 History Dysfunction omeprazole magnesium 20 mg 20 mg PO DAILY 02/09/25 02/20/25 History tablet,delayed release (Prilosec OTC) dexamethasone 4 mg tablet 4 mg PO DAILY #10 tabs 02/10/25 02/20/25 Rx epinephrine 0.3 mg/0.3 mL 0.3 mg (0.3 mL) IM ONCE #2 ea 02/10/25 02/20/25 Rx injection, auto-injector (Auvi-Q) triamcinolone acetonide 0.1 % 1 applic topical Q12HR #60 grams 02/10/25 02/20/25 Rx topical cream Sedation/Anesthesia: No previous sedation/anesthesia problems (including family history). [facility] Past Medical History Medical History (Updated 02/10/25 @ 11:03 by REBECCA Arce) Rash Peripheral arterial occlusive disease Hallux valgus (acquired), right foot Hallux rigidus of right foot Hyperlipidemia Essential hypertension Surgical History Surgical History No significant past surgical history Family History Family History Father Esophageal cancer Malignant neoplasm of prostate Social History Social History Social History: Patient is a santos. He lives with his girlfriend. He has smoked 1.5 packs per day since he was a teenager. He drinks alcohol a couple of times a week in moderation. He denies illicit substance use. He served in the [employer] for many years during a couple of different worse. He does not have any children. Code status: Full code Surrogate decision maker: Toshia Grey (significant other) Smoking packs per day: 1.5 Smoking cigarettes per day: 30.0 Years smoked: 45 Smoking pack-years: 67.50 Smoking status: Current every day smoker Tobacco type: cigarettes Additional smoking assessment comments: patient is currently trying to stop smoking and uses nicotine patches Alcohol intake: current Drinks per week: 12 Substance use: never Substance use type: does not use Do You Feel Safe in your Home?: Yes Lack of Transportation: No Lack of Food: Never True Current Housing: I Have Housing Concerned About Future Housing: No Difficulty Paying Gas/Electric Bills: No Difficulty Paying for Meds: No Currently Unemployed: No Education: Decline to Answer Difficulty w/ Childcare or Family Care: No Spiritual care concerns: No Mod Sed Physical Exam Physical Exam Pre Procedural Exam: Normal: Appearance, Throat, Lungs, Heart Rate and Heart Rhythm Hours since solid foods: 13 Hours since liquid intake: 13 Mallampati Classification: class II Internal Medicine - PN: Obj Da Vital Signs Vital Signs: Vital Signs - 24 hr 02/23/25 07:30 Temperature 97.8 F Pulse Rate 52 L Respiratory Rate 16 Blood Pressure 160/75 H Pulse Oximetry 100 Oxygen Delivery Room Air Labs 02/23/25 07:28 Labs: Laboratory Results - last 24 hr 02/23/25 07:28 WBC 9.6 RBC 4.01 L Hgb 12.3 L Hct 37.4 L MCV 93.3 MCH 30.7 MCHC 32.9 RDW 13.2 Plt Count 270 MPV 9.4 Immature Gran % (Auto) 0.6 H Neut % (Auto) 66.0 Lymph % (Auto) 21.4 [place] % (Auto) 8.4 Eos % (Auto) 3.3 Baso % (Auto) 0.3 Lymph # (Auto) 2.06 [place] # (Auto) 0.8 H Eos # (Auto) 0.3 Baso # (Auto) 0.0 Abs Immat Gran (auto) 0.06 H Absolute Neuts (auto) 6.4 Absolute Nucleated RBC 0.000 Nucleated RBC % 0.0 PT 12.8 INR 1.0 ASA Classification/Sedation ASA Classification/Sedation ASA Class: III Emergent: No Risks: Risks, benefits and alternatives explained and patient/family accepted plan for sedation. Patient re-evaluated immediately prior to sedation.
[2025-02-23 11:00] VITALS: BP 126/54; PULSE 60; RESP 12; O2SAT 98
[2025-02-23 11:15] VITALS: BP 128/69; PULSE 57; RESP 16; O2SAT 97
[2025-02-23 11:30] VITALS: BP 123/70; PULSE 62; RESP 17; O2SAT 97
[2025-02-23 11:45] VITALS: BP 134/72; PULSE 51; RESP 15; O2SAT 97
[2025-02-23 12:00] VITALS: BP 136/68; PULSE 59; RESP 16; O2SAT 97
== END 2025-02-23 12:01 | disposition home or self-care (01) ==
PROVIDERS: PCP Internal Medicine; Referring Provider Internal Medicine Hematology; Visit Provider Radiology Diagnostic Radiology
DX: D64.9 Anemia, unspecified (principal); E78.5 Hyperlipidemia, unspecified; I10 Essential (primary) hypertension; M20.21 Hallux rigidus, right foot; I77.9 Disorder of arteries and arterioles, unspecified; F17.210 Nicotine dependence, cigarettes, uncomplicated; Z80.42 Family history of malignant neoplasm of prostate; Z80.0 Family history of malignant neoplasm of digestive organs
CPT/HCPCS: 36415; 38222; 85025; 85610; 88184; 88185; 88305; 88311; 88313; 88341; 88342; 88364; 88365; J2250; J3010

== ENCOUNTER 2025-03-07 10:33 | Outpatient (CLI) | payer BC, SELFPAY ==
[2025-03-07 11:15] LABS: Immature Reticulocyte Fraction 7.0 % (3.0-15.9); Reticulocyte Hemoglobin Conten 32.0 pg (28.2-36.6); Reticulocytes Absolute 0.05 10^6/uL (0.02-0.10)
[2025-03-07 11:39] LABS: CRP 2.5 mg/dL (<1.0)
[2025-03-09 15:08] LABS: Albumin 3.7 g/dL (2.9-4.4); Alpha-1-Globulin 0.3 g/dL (0.0-0.4); Alpha-2-Globulin 0.9 g/dL (0.4-1.0); Gamma Globulin 0.7 g/dL (0.4-1.8)
[2025-03-09 18:08] LABS: Free Lambda Lt Chains, Serum 10.1 mg/L (5.7-26.3); Kappa/Lambda Ratio, Serum 2.24 (0.26-1.65)
[2025-03-10 14:08] LABS: Immunoglobulin A, Qn 550 mg/dL (90-386); Immunoglobulin G, Qn 595 mg/dL (603-1613); Immunoglobulin M, Qn 138 mg/dL (20-172)
[2025-03-11 11:53] LABS: Immunoglobulin A, Qn 539 mg/dL (90-386); Immunoglobulin G, Qn 605 mg/dL (603-1613); Immunoglobulin M, Qn 137 mg/dL (20-172)
== END 2025-03-07 10:34 | disposition home or self-care (01) ==
PROVIDERS: PCP Internal Medicine; Visit Provider Internal Medicine
DX: L95.9 Vasculitis limited to the skin, unspecified (principal); R59.1 Generalized enlarged lymph nodes
CPT/HCPCS: 36415; 82784; 83520; 83521; 84155; 84165; 85046; 86037; 86140; 86334

== ENCOUNTER 2025-03-24 08:39 | Outpatient (CLI) | payer BC, SELFPAY ==
--- NOTE | ~2025-03-24 | PE_ITS ---
EXAMINATION: PET_PETWHOLE_PT DATE: 03/24/2025 12:24 INDICATION: Smoldering myeloma TECHNIQUE: Blood glucose level was 102 mg/dL. 10.122 mCi of 18- fluorodeoxyglucose (18-FDG) was administered i.v. Low dose computed tomography (CT) images were acquired from the vertex of the skull through the feet for attenuation correction and anatomic localization. Positron emission tomography (PET) images were acquired in the same distribution beginning 63 minutes after injection. Images including fused PET/CT images were reconstructed in axial, coronal, and sagittal planes. Automated exposure control technique was employed. The dose-length product was 1689.10mGy-cm. COMPARISON: CT chest dated 06/16/2024, chest and neck CT dated 01/27/2022 and MR abdomen dated 07/10/2024. FINDINGS: Head/neck: There is symmetric increased activity in the oral cavity, palatine tonsils, anterior upper cervical paraspinal muscles, laryngeal muscles and ocular muscles without CT correlate, likely physiologic. 10 x 6 mm FDG avid nodule at the posterior left prostate with maximal SUV of 6.3. This appears unchanged in size since neck CT dated 01/27/2022. No pathologically enlarged cervical lymphadenopathy or other suspicious foci of increased FDG uptake in the visualized head or neck. Chest: Mild emphysema. Dependent groundglass opacities in both lungs consistent with atelectasis. Calcified nodule in the right lower lobe and calcified right hilar and mediastinal lymph nodes consistent with old granulomatous disease. Heart size is normal. No pericardial effusion. Thoracic aorta is normal in caliber. There is mild increased FDG uptake associated with a couple mildly prominent left axillary lymph nodes. The larger, more caudal and FDG avid lymph node measures 1.9 x 1.2 cm cm with maximal SUV of 5.3. No other pathologically enlarged or FDG avid thoracic lymphadenopathy. Abdomen/pelvis/proximal thighs: Physiologic renal accumulation and excretion of FDG activity in the kidneys, bladder and along portions of ureters. Prostatomegaly measuring 5.6 x 4.8 cm. Normal degree and heterogenous pattern of increased uptake throughout the liver without radiologic correlate or dominant FDG avid lesion. The gallbladder, pancreas, spleen and bilateral adrenal glands are normal. Mild uptake scattered throughout the bowels without radiologic correlate, also likely physiologic. No other abnormal foci of increased FDG uptake or pathologically enlarged lymphadenopathy in the abdomen, pelvis or proximal thighs. Musculoskeletal: There is a single tiny focus of prominent bone uptake at the right posterior iliac spine with maximal SUV of 5.1 without a definitive corresponding bone lesion on CT. No other suspicious lytic, blastic or abnormally FDG avid bone lesions. There is symmetric likely physiologic synovial uptake at the bilateral shoulders and at the suprapatellar pouch of the bilateral knees. Additional symmetric likely physiologic uptake at the musculature of the bilateral upper extremities. IMPRESSION: 1. Single tiny focus of mild increased bone uptake at the right posterior iliac spine for myeloma. No other suspicious lytic, blastic or abnormally FDG avid bone lesions. 2. Mild increased FDG uptake associated with a mildly enlarged left axillary lymph node which is unchanged in size since 01/27/2022 and most likely reactive. 3. Mild increased FDG uptake associated with a 10 x 6 mm nodule at the posterior left carotid which could represent a node or parotid neoplasm. The nodule appears unchanged since CT dated 01/27/2022 which favors either reactive lymph node or benign neoplasm over malignancy. Reviewed, dictated and finalized at location A. IMPRESSION: 1. Single tiny focus of mild increased bone uptake at the right posterior iliac spine for myeloma. No other suspicious lytic, blastic or abnormally FDG avid b one lesions. 2. Mild increased FDG uptake associated with a mildly enlarged left axillary ly mph node which is unchanged in size since 01/27/2022 and most likely reactive. 3. Mild increased FDG uptake associated with a 10 x 6 mm nodule at the posterio r left carotid which could represent a node or parotid neoplasm. The nodule carmen ears unchanged since CT dated 01/27/2022 which favors either reactive lymph node or benign neoplasm over malignancy.
--- OUTSIDE RECORDS SUMMARY | 2025-03-24 09:11 | XMS_ITS | Encounter Summary ---
Author Organization [facility] Address [address] [place] [address] Care Team Providers Care Threader Operator Name Role Phone Unavailable Primary Care Provider Unavailabl e Encounter Details Date Type Department Care Team (Late st Contact Info) Description 02/23/2025 Lab Requisition [facility] - Pathology Lab [address] [place] [address] Pavel Durand MD [address] [place] [id number] Anaphylactic shock, unspecified, initial encounter Social History Tobacco Use Types Packs/Day Years Used Date Smoking Tobacco: Never Assessed Sex and Gender Information Value Date Recorded Sex Assigned at Not on file Legal Sex Male 12:10 PM CDT Gender Identity Not on file Sexual Orientation Not on file documented as of this encounter Plan of Treatment Not on file documented as of this encounter Procedures Procedure Name Priority Date/Time Associated Diagnosis Comments FLOW CYTOMETRY BONE MARROW Routine 02/23/2025 10:42 AM CDT Anaphylactic shock, unspecified, initial encounter documented in this encounter Results * FLOW CYTOMETRY BONE MARROW (02/23/2025 10:42 AM CDT) Case Report Flow Cytometry Case: [id number] Authorizing Provider: Pavel Durand Collected: 02/23/2025 10:42 AM MD Wiley Ordering Location: [facility] - Received: 02/23/2025 12:12 PM Pathology Lab Pathologist: Mallory Delaney MD Specimen: Bone Marrow 02/23/2025 2:23 PM CDT [facility] Final Diagnosis Bone marrow, flow cytometric immunophenotyping: - No diagnostic immunophenotypic evidence of monoclonal B-cells, aberrant T-cell population, increased blasts, or plasma cell neoplasm 02/23/2025 2:[address] [facility] at 1423 CDT Flow Cytometry Interpretation Viability: 90% B-cells: 2.2% of total, polytypic, kappa:lambda ratio 2.4:1, minimal CD5 coexpression, no significant CD10 coexpression T-cells: 13% of total, no diagnostic immunophenotypic aberrancy detected, CD4:CD8 ratio 1.5:1 Blasts: detected, 0.8%, express CD34, CD13, CD33 Plasma cells: no significant population detected MRD sent: No A bone marrow aspirate smear prepared from the flow cytometry specimen has been reviewed for water quality technician purposes. Please correlate with histologic review of the bone marrow. 02/23/2025 2:[address] [facility] Flow Cytometry Results Differential Result Comment Flow Cell Count /uL 63,600 Total Viability % 90.0 Lymphocytes % 16 Dim CD45 Region % 6 Monocytes % 10 Granulocytes % 69 02/23/2025 2:[address] [facility] Reason for test Anaphylactic shock, unspecified, initial encounter 02/23/2025 2:[address] [facility] Client Specimen ID # [id number] 02/23/2025 2:[address] [facility] Number of markers 17 were performed. A-1 Flow CD10 A-2 Flow CD13 A-4 Flow CD20 A-10 Flow CD2 A-11 Flow CD3 A-12 Flow CD4 A-16 Flow CD1a A-3 Flow CD19 A-5 Flow CD33 A-6 Flow CD34 A-7 Flow CD45 A-13 Flow CD5 A-14 Flow CD7 A-15 Flow CD8 A-17 Flow CD30 A-8 [place]+CD19+ A-9 Lambda+CD19+ 02/23/2025 2:[address] [facility] Pathologist Location at [facility] 02/23/2025 2:[address] [facility] Disclaimer Test performed at [facility], [address] [place] [address], [id number]. *The established laboratory minimum viability is 70%. Values below the minimum may result in the failure to find an abnormal population of cells. This test was developed and its performance characteristics determined by the Flow Cytometry Laboratory. It has not been cleared by the [place] Food and Drug Administration (FDA). The FDA has determined that such clearance or approval is not necessary. This test is used for clinical purposes. It should not be regarded as investigational or for research. This laboratory is regulated under the Clinical Laboratory Improvement Amendments of 1998 (CLIA) as a qualified to perform high complexity clinical testing. 02/23/2025 2:23 PM CDT [facility] Embedded Images 2:23 PM CDT [facility] Pathology/Cytolo gy BONE MARROW SPECIMEN / Unknown 02/23/2025 10:42 AM CDT 02/23/2025 12:12 PM CDT Pavel Durand MD LAB - PATHOLOGY/CYT OLOGY ORDERABLES Final Result [facility] [address] [place], [place] [id number] [place] [address] documented in this encounter Visit Diagnoses Diagnosis Anaphylactic shock, unspecified, initial encounter documented in this encounter
--- OUTSIDE RECORDS SUMMARY | 2025-03-24 09:11 | XMS_ITS | Encounter Summary ---
Author Organization [facility] Address [address] [place] [address] Care Team Providers Care Geriatric Aide Name Role Phone Unavailable Primary Care Provider Unavailabl e Encounter Details Date Type Department Care Team (Late st Contact Info) Description 02/24/2025 Lab Requisition [facility] - Pathology Lab [address] [place] [address] Pavel Durand MD [address] [place] [id number] Illness, unspecified Social History Tobacco Use Types Packs/Day Years [...] Procedure Name Priority Date/Time Associated Diagnosis Comments BONE MARROW BIOPSY (STL) Routine 02/23/2025 10:42 AM CDT Illness, unspecified documented in this encounter Results * BONE MARROW BIOPSY (STL) (02/23/2025 10:42 AM CDT) Case Report Bone Marrow Patholog y Report Case: [id number] Authorizing Provider: Pavel Durand Collected: 02/23/2025 10:42 AM MD Wiley Ordering Location: [facility] - Received: 02/24/2025 01:06 PM Pathology Lab Pathologist: Mallory Delaney MD Specimens: A) - Bone Marrow Clot B) - Bone Marrow Core 02/27/2025 2:05 PM CDT [facility] Final Diagnosis Bone marrow, iliac crest, core biopsy, clot section, and aspirate: - Normocellular bone marrow with trilineage hematopoiesis, mildly increased plasma cells (10%), increased eosinophils (9%), and increased ring sideroblasts (36% of erythroid precursors), see comment - No significant reticulin fibrosis (MF-0) - Adequate iron stores 02/27/2025 2:05 PM T [facility] Amendment electronically signed by Mallory Delaney MD on 02/25/2025 at 1534 CDT at 1337 CDT AP Comment The patient is a 59-year-old man with mild anemia and rash. The bone marrow is normocellular for the patient's age and shows mildly increased plasma cells and increased ring sideroblasts (36% of erythroid precursors). [place] and lambda immunohistochemistry and in situ hybridization stains are pending to evaluate plasma cell clonality, the results of which will be reported as an addendum and the diagnosis will be updated as necessary. Ring sideroblasts may be associated with any myeloid neoplasm but are not specific for such, and may also be associated with excessive alcohol consumption, nutritional deficiency, heavy metal toxicity (lead, zinc) and with certain medications. Dyspoietic features to suggest myelodysplasia are not otherwise identified. The presence of increased plasma cells and eosinophils, combined with the patient's history of rash, could indicate autoimmune disease. Evaluation for such should be considered. Correlation with relevant cytogenetic, FISH, and molecular data is needed to evaluate for abnormalities associated with myeloid neoplasms. 02/27/2025 2:[address] [facility] Peripheral Smear Description The patient's CBC performed on 05/23/2025 shows a white count of 9600/mcL, hemoglobin 12.3 g/dL, hematocrit 37.4%, MCV 93.3 fL, and a platelet count of 270,000/mcL. The white cell differential shows 66% neutrophils, 21.4% lymphocytes, 8.4% monocytes, 3.3% eosinophils, and 0.3% basophils. A peripheral blood smear is not provided for review. 02/27/2025 2:[address] [facility] Bone Marrow Aspirate Differential count (200 cells): 1.5% blasts, 52.5% maturing myeloid precursors, 20.5% erythroid progenitors, 4% monocytes, 9% eosinophils, 8% lymphocytes, 4.5% plasma cells. Specimen quality: adequate. Spicules: present. Trilineage Hematopoiesis: present. Myeloid:Erythroid ratio: normal. Myeloid Maturation: normal. Erythroid Maturation: normal. Megakaryocyte morphology: normal nuclear lobation. Storage iron (by special stain): decreased. Sideroblastic iron (by special stain): ring sideroblasts present accounting for 36% of the erythroid progenitors. 02/27/2025 2:[address] [facility] Bone Marrow Core Biopsy and Clot Section Description Specimen quality: adequate with 2.4 cm of evaluable marrow. Cellularity: 40% Trilineage Hematopoiesis: present. Myeloid to Erythroid ratio: normal. Myeloid maturation and localization: normal. Erythroid maturation and localization: normal. Megakaryocyte number: normal. Megakaryocyte distribution: normal. Lymphoid aggregates: absent. Bone trabeculae: normal. Blood vessels: normal. Other: eosinophils are mildly increased. There is no evidence of lymphoma, granulomata, or extrinsic tumor cells. Plasma cells: increased, but normal morphology. Clot section marrow particles: numerous. Clot section morphology: similar to core biopsy. 02/27/2025 2:[address] [facility] Flow Cytometry Summary Flow cytometry revealed no diagnostic immunophenotypic evidence of monoclonal B cells, aberrant T-cell population, increased blasts, or plasma cell neoplasm ([id number]). 02/27/2025 2:[address] [facility] Clinical History Rash, anemia 02/27/2025 2:[address] [facility] Materials Received Received are 22 slide(s) and 4 blocks labeled [id number] along with a copy of the outside pathology report. [place] [address]. All original materials are returned to the referring institution, along with a copy of our final report. 02/27/2025 2:[address] [facility] Microscopic Description Immunohistochemistry and special stains are performed on the core biopsy and/or clot section to further characterize the marrow and reacted with appropriate controls. Immunohistochemistry stains are performed on the core biopsy and clot section in addition to flow cytometry given the cellular heterogeneity of marrow, show similar staining patterns between the two sites, and are described collectively. CD20, B-cell marker, highlights <5% of total cells. CD3, T-cell marker, highlights 5-10% of total cells. No abnormal lymphocyte aggregates are appreciated. CD138, plasma cell marker, highlights up to 10% of total cells. Plasma cells are aligned along blood vessels and also percolate throughout the interstitium. Large sheets of plasma cells are not appreciated. CD34, a marker of blasts, highlights <5% of total cells. A reticulin stain of the core biopsy highlights no significant increase in reticulin fibrosis. Iron stains of the clot sections reveal adequate stores. 02/27/2025 2:[address] [facility] Pathologist Location at [facility] 02/27/2025 2:[address] [facility] Disclaimer The performance characteristics of all immunohistochemical and indirect immunofluorescence stains (if any) cited in this report were determined by the Histopathology Laboratory of [facility]. Some of these tests were developed by our own laboratory and have not been cleared or approved by the US Food and Drug Administration. The FDA does not require this test to go through premarket FDA review. These tests are used for clinical purposes. They should not be regarded as investigational or for research. This laboratory is certified under the Clinical Laboratory Improvement Amendments (CLIA) as qualified to perform high complexity clinical laboratory testing. This case has been personally reviewed and interpreted by the attending (teaching) pathologist. 02/27/2025 2:[address] [facility] Addendum 1 Addendum diagnosis: 10% kappa-restricted (monoclonal) plasma cells identified, consistent with a plasma cell neoplasm Addendum comment: [place] and lambda immunohistochemistry and in situ hybridization stains performed on the core biopsy and clot section highlight a kappa-restricted plasma cell population consistent with a plasma cell neoplasm. [place] and lambda in situ hybridization stains of the clot section are noncontributory as significant staining for either marker is not identified. Please correlate with serum protein electrophoresis, laboratory data, and imaging for classification of the patient's plasma cell neoplasm. A Congo red stain is pending on the core biopsy to evaluate for amyloid, the result of which will be reported as an additional addendum upon completion. 02/27/2025 2:[address] [facility] Addendum electronically signed by Mallory Delaney MD on 02/26/2025 at 1113 CDT Addendum 2 This addendum is issued to report the result of a Congo red stain of the core biopsy with reactive control. The stain is negative for amyloid deposition. The diagnosis is unchanged. 02/27/2025 2:05 PM CDT [facility] Addendum electronically signed by Mallory Delaney MD on 02/27/2025 at 1405 CDT Embedded Images 02/27/2025 2:05 PM CDT [facility] Pathology/Cytology BONE MARROW SPECIMEN / Unknown 02/23/2025 10:42 AM CDT 02/24/2025 1:06 PM CDT Miscellaneous samples (specimen) BONE MARROW SPECIMEN / Unknown 02/23/2025 10:42 AM CDT 02/24/2025 1:06 PM CDT Pavel Durand MD LAB - PATHO LOGY/CYTOLOGY ORDERABLES Edited Result - Final [facility] [address] [phone] documented in this encounter Visit Diagnoses Diagnosis Illness, unspecified documented in this encounter
--- OUTSIDE RECORDS SUMMARY | 2025-03-24 09:11 | XMS_ITS | Clinical Summary ---
Author Organization [facility] Address [address] [place] [address] Phone Care Team Providers Care Fish Hatchery Laborer Name Role Phone Sofia Fajardo MD Primary Care Provider [phone] Petros Box MD Unavailable [phone] Toshia Watson APRN, HEALTH EDUCATION SPECIALIST Unavailable [phone] Allergies Active Allergy Reactions Criticality Noted Date [...] Date Smoking Tobacco: Every Day Cigarettes 0.2 41.7 Started: 07/16/1983 Smokeless Tobacco: Current Tobacco Cessation:Ready [...] Comments Blood Pressure 150/80 08/19/2024 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 Pulse 76 08/19/2024 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 Temperature 36.4 C (97.5 F) 08/19/2024 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 Respiratory Rate 17 08/19/2024 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 Oxygen Saturation 98% 08/19/2024 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 Inhaled Oxygen Concentration - - Weight 102.9 kg (226 lb 14.4 oz) 08/19/2024 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 Height 188 cm (6' 2) 08/19/2024 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 Body Mass Index 29.13 08/19/2024 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 Plan of Treatment Health Maintenance Due Date Last Done Comments Hepatitis C Virus (HCV) Screening 1966 Hepatitis B Immunization (1 of 3 - 19+ 3-dose series) 1985 Pneumococcal Immunization (5 0+ years) (1 of 2 - PCV) 1985 Cologuard 2011 Colonoscopy 2011 Colorectal Cancer Screening 2011 Immunochemical Fecal Occult Blood 2011 Zoster Immunization (1 of 2) 2016 PSA Discussion 2021 Influenza Immunization (#1) 03/16/202503/2017, 06/05/2016, 05/28/2014 SARS-COV-2 Immunization ( - season) 2025 Respiratory Syncytial Virus (RSV) Immunization (Adult) (1 [...] to complete this topic Insurance Care Teams Fish Hatchery Laborer Relationship Specialty Start Date End Date Sofia Fajardo MD [address] [place] [address] PCP - General Internal Medicine 04/08/24 Petros Box MD [address] [place] [id number] Consulting Physician Neurology 06/09/24 Toshia Watson APRN, HEALTH EDUCATION SPECIALIST [address] [place] [address] Nurse Practitioner Advanced Practice Nurse 08/19/24
--- OUTSIDE RECORDS SUMMARY | 2025-03-24 09:12 | XMS_ITS | Clinical Summary ---
Author Organization [facility] Address [address] [place] [address] Care Team Providers Care Library Clerk Name Role Phone Unavailable Primary Care Provider Unavailabl e Source Comments [facility],non-owned Affiliates and Associated Physician Practices is amultiple site organization consisting of ambulatory clinics and hospital sitesin [place], [place], [place] and [place]. This disclosure is being madepursuant to the Care Everywhere program and may not contain all information available regarding this patient. Last updated 18.[facility] Encounters Date Type Department Care Team Description 02/24/2025 Lab Requisition [facility] - Pathology Lab [address] [place] [address] Pavel Durand MD Illness, unspecified 02/23/2025 Lab Requisition [facility] - Pathology Lab [address] [place] [address] Pavel Durand MD Anaphylactic shock, unspecified, initial encounter from Last 3 Months Social History Tobacco Use Types Packs/Day Years Used Date Smoking Tobacco: Never Assessed Sex and Gender Information Value Date Recorded Sex Assigned at Not on file Legal Sex Male 12:10 PM CDT Gender Identity Not on file Sexual Orientation Not on file Plan of Treatment Health Maintenance Due Date Last Done Comments COLOGUARD (AGES 45-75) - COL ON CA SCREENING 1966 COLON MONITORING 1966 COLONOSCOPY - COLON CA SCREENING 1966 CT COLONOGRAPHY - COLON CA SCREENING 1966 Colorectal Cancer Screening 1966 FIT - COLON CA SCREENING 1966 FLEX SIG - COLON CA SCREENING 1966 LIPID TESTING 1966 HIV SCREENING 1981 HEPATITIS C SCREENING 07/06/1984 DTAP/TDAP/TD VACCINES (1 - Tdap) 1985 HEPATITIS B VACCINE (1 of 3 - 19+ 3-dose series) 1985 PNEUMOCOCCAL VACCINE 50+ (1 of 1 - PCV) 2016 ZOSTER VACCINE (1 of 2) 2016 DEPRESSION SCREENING 07/16/2024 COVID-19 VACCINE (1 - 2023-2 5 season) 2025 INFLUENZA VACCINE (#1) 2025 HIB VACCINE Aged Out No longer eligi ble based on patient's age to complete this topic HPV VACCINE Aged Out No longer eligi ble based on patient's age to complete this topic MENINGOCOCCAL (Group B) VACC INE SHARED DECISION-MAKING Aged Out No longer eligibl e based on patient's age to complete this topic MENINGOCOCCAL GROUPS A/C/Y/W VACCINE Aged Out No longer eligible b ased on patient's age to complete this topic Procedures Procedure Name Priority Date/Time Associated Diagnosis Comments BONE MARROW BIOPSY (STL) Routine 02/23/2025 10:42 AM CDT Illness, unspecified FLOW CYTOMETRY BONE MARROW Routine 02/23/2025 10:42 AM CDT Anaphylactic shock, unspecified, initial encounter from Last 3 Months Results * FLOW CYTOMETRY BONE MARROW (02/23/2025 10:42 AM CDT) Case Report Flow Cytometry Case: [id number] Authorizing Provider: Pavel Durand Collected: 02/23/2025 10:42 AM MD Wiley Ordering Location: [facility] - Received: 02/23/2025 12:12 PM Pathology Lab Pathologist: Mallory Delaney MD Specimen: Bone Marrow 02/23/2025 2:23 PM CDT [facility] Final Diagnosis Bone marrow, flow cytometric immunophenotyping: - No diagnostic immunophenotypic evidence of monoclonal B-cells, aberrant T-cell population, increased blasts, or plasma cell neoplasm 02/23/2025 2:23 PM CDT [facility] at 1423 CDT Flow Cytometry [...] flow cytometry specimen has been reviewed for quality control head purposes. Please correlate with histologic review of the bone marrow. 02/23/2025 2:23 PM [facility] Flow Cytometry Results Differential Result Comment Flow Cell Count /uL 63,600 Total Viability % 90.0 Lymphocytes % 16 Dim CD45 Region % 6 Monocytes % 10 Granulocytes % 69 02/23/2025 2:23 PM [facility] Reason for test Anaphylactic shock, unspecified, initial encounter 02/23/2025 2:23 PM [facility] Client Specimen ID # [id number] 02/23/2025 2:23 PM [facility] Number of markers 17 were performed. A-1 Flow CD10 A-2 Flow CD13 A-4 Flow CD20 A-10 Flow CD2 A-11 Flow CD3 A-12 Flow CD4 A-16 Flow CD1a A-3 Flow CD19 A-5 Flow CD33 A-6 Flow CD34 A-7 Flow CD45 A-13 Flow CD5 A-14 Flow CD7 A-15 Flow CD8 A-17 Flow CD30 A-8 [place]+CD19+ A-9 Lambda+CD19+ 02/23/2025 2:23 PM [facility] Pathologist Location at [facility] 02/23/2025 2:23 PM [facility] Disclaimer Test performed at [facility], [address] [place] [address], [address]. *The established laboratory minimum viability is 70%. [...] complexity clinical testing. 02/23/2025 2:23 PM CDT [facility] Embedded Images 2:23 PM CDT [facility] Pathology/Cytolo gy BONE MARROW SPECIMEN / Unknown 02/23/2025 10:42 AM CDT 02/23/2025 12:12 PM CDT Pavel Durand MD LAB - PATHOLOGY/CYT OLOGY ORDERABLES Final Result [facility] [address] [phone] * BONE MARROW BIOPSY (STL) (02/23/2025 10:42 AM CDT) Case Report Bone Marrow Patholog y Report Case: [id number] Authorizing Provider: Pavel Durand Collected: 02/23/2025 10:42 AM MD Wiley Ordering Location: [facility] - Received: 02/24/2025 01:06 PM Pathology Lab Pathologist: Mallory Delaney MD Specimens: A) - Bone Marrow Clot B) - Bone Marrow Core 02/27/2025 2:05 PM CDT [facility] Final Diagnosis Bone marrow, iliac crest, core biopsy, clot section, and aspirate: - Normocellular bone marrow with trilineage hematopoiesis, mildly increased plasma cells (10%), increased eosinophils (9%), and increased ring sideroblasts (36% of erythroid precursors), see comment - No significant reticulin fibrosis (MF-0) - Adequate iron stores 02/27/2025 2:05 PM CDT [facility] Amendment electronically signed by Mallory Delaney MD on 02/25/2025 at 1534 CDT at 1337 CDT AP Comment The patient is a 59-year-old man with mild anemia and rash. The bone marrow is normocellular for the patient's age and shows mildly increased plasma cells and increased ring sideroblasts (36% of erythroid precursors). [place] and lambda immunohistochemistry and in situ hybridization [...] myeloid neoplasms. 02/27/2025 2:05 PM [facility] Peripheral Smear Description The patient's CBC performed on 05/23/2025 shows a white count of 9600/mcL, hemoglobin 12.3 g/dL, hematocrit 37.4%, MCV 93.3 fL, and a platelet count of 270,000/mcL. The white cell differential shows 66% neutrophils, 21.4% lymphocytes, 8.4% monocytes, 3.3% eosinophils, and 0.3% basophils. A peripheral blood smear is not provided for review. 02/27/2025 2:05 PM [facility] Bone Marrow Aspirate Differential [...] erythroid progenitors. 02/27/2025 2:05 PM [facility] Bone Marrow Core Biopsy [...] core biopsy. 02/27/2025 2:05 PM [facility] Flow Cytometry Summary Flow cytometry revealed no diagnostic immunophenotypic evidence of monoclonal B cells, aberrant T-cell population, increased blasts, or plasma cell neoplasm ([id number]). 02/27/2025 2:05 PM [facility] Clinical History Rash, anemia 02/27/2025 2:05 PM [facility] Materials Received Received are 22 slide(s) and 4 blocks labeled [id number] along with a copy of the outside pathology report. [place] [address]. All original materials are returned to the referring institution, along with a copy of our final report. 02/27/2025 2:05 PM [facility] Microscopic Description Immunohistochemistry and [...] adequate stores. 02/27/2025 2:05 PM [facility] Pathologist Location at [facility] 02/27/2025 2:05 PM [facility] Disclaimer The performance characteristics of all immunohistochemical and indirect immunofluorescence stains (if any) cited in this report were determined by the Histopathology Laboratory of [facility]. Some of these tests were developed by [...] (teaching) pathologist. 02/27/2025 2:05 PM [facility] Addendum 1 Addendum diagnosis: 10% kappa-restricted (monoclonal) plasma cells identified, consistent with a plasma cell neoplasm Addendum comment: [place] and lambda immunohistochemistry and in situ hybridization stains performed on the core biopsy and clot section highlight a kappa-restricted plasma cell population consistent with a plasma cell neoplasm. [place] and lambda in situ hybridization stains of [...] additional addendum upon completion. 02/27/2025 2:05 PM T [facility] Addendum electronically signed by Mallory Delaney MD on 02/26/2025 at 1113 CDT Addendum 2 This addendum is issued to report the result of a Congo red stain of the core biopsy with reactive control. The stain is negative for amyloid deposition. The diagnosis is unchanged. 02/27/2025 2:05 PM T [facility] Addendum electronically signed by Mallory Delaney MD on 02/27/2025 at 1405 CDT Embedded Images 02/27/2025 2:05 PM T [facility] Pathology/Cytology BONE MARROW SPECIMEN / Unknown 02/23/2025 10:42 AM CDT 02/24/2025 1:06 PM CDT Miscellaneous samples (specimen) BONE MARROW SPECIMEN / Unknown 02/23/2025 10:42 AM CDT 02/24/2025 1:06 PM CDT Pavel Durand MD LAB - PATHO LOGY/CYTOLOGY ORDERABLES Edited Result - Final [facility] [address] [facility] [place] [address], [facility] [phone] from Last 3 Months
[2025-03-24 12:31] LABS: CRP 1.7 mg/dL (<1.0)
[2025-03-25 14:08] LABS: ANA by IFA Rfx Titer/Pattern Negative (.)
== END 2025-03-24 08:40 | disposition home or self-care (01) ==
PROVIDERS: PCP Internal Medicine; Referring Provider Allergy & Immunology; Visit Provider Internal Medicine Hematology
DX: L50.1 Idiopathic urticaria (principal); R21 Rash and other nonspecific skin eruption; D47.2 Monoclonal gammopathy; R22.1 Localized swelling, mass and lump, neck
CPT/HCPCS: 36415; 78816; 85652; 86038; 86140; A9552

== ENCOUNTER 2025-07-10 10:27 | Outpatient (CLI) | payer BC, SELFPAY ==
[2025-07-10 10:51] LABS: Hematocrit 41.9 % (42.0-52.0); Hemoglobin 13.7 g/dL (14.0-18.0); Immature Granulocyte Percent A 0.8 % (0-0.5); Lymphocytes Absolute Auto 2.40 K/mm3 (0.9-3.2); Mean Corpuscular HGB Conc 32.7 g/dl (32-36); Mean Corpuscular Hemoglobin 29.6 pg (26-34); Mean Corpuscular Volume 90.5 fl (80-100); Nucleated Red Blood Cells Absolute Auto 0.000 K/mm3 (0.0-0.012); Nucleated Red Blood Cells Perc 0.0 % (0.0-0.2); Platelet Count Result 327 k/mm3 (150-375); Red Blood Count 4.63 M/mm3 (4.6-6.20); White Blood Count 7.1 K/mm3 (4.5-10.0)
[2025-07-10 10:56] LABS: Add Urine Microscopic? YES; Appearance Urine Clear (Clear); Glucose Urine UA Negative (Negative); Leukocyte Esterase Ur Trace LEU/UL (Negative); Nitrate Urine Negative (Negative); Non Pathogenic Casts 0-2; Specific Grav Ur 1.024 (1.001-1.035)
[2025-07-10 11:00] LABS: Hemoglobin A1C 6.1 % (<5.7)
[2025-07-10 11:12] LABS: Alanine Aminotransferase 42 U/L (6-50); Albumin Level 4.2 g/dL (3.5-5.1); Alkaline Phosphatase 85 U/L (38-126); Anion Gap 5 mmol/L (4-12); Aspartate Amino Transferase 34 U/L (17-59); Bilirubin,Total 0.3 mg/dL (0.2-1.3); Blood Urea Nitrogen 22 mg/dL (9-20); Calcium 9.7 mg/dL (8.4-10.2); Carbon Dioxide 25 mmol/L (22-30); Chloride 109 mmol/L (98-107); Cholesterol 168 mg/dL (0-200); Estimated Glomerular Filt Rate > 60; Glucose 128 mg/dL (65-110); HDL Direct 50 mg/dL; Potassium 4.2 mmol/L (3.4-5.0); Sodium 139 mmol/L (137-145); Total Protein 7.3 g/dL (6.3-8.2); Triglycerides 74 mg/dL (<150)
[2025-07-10 11:15] LABS: Creatine Kinase 56 U/L (55-170)
[2025-07-10 11:27] LABS: Free T4 Free Thyroxine 0.83 ng/dL (0.78-2.19)
[2025-07-10 11:48] LABS: Thyroid Stimulating Hormone 0.618 uIU/mL (0.465-4.680)
== END 2025-07-10 10:28 | disposition home or self-care (01) ==
LOC: ANHLAB 10:28
PROVIDERS: PCP Internal Medicine; Visit Provider Internal Medicine
DX: E78.2 Mixed hyperlipidemia (principal); I10 Essential (primary) hypertension; R73.01 Impaired fasting glucose; E03.4 Atrophy of thyroid (acquired); N39.0 Urinary tract infection, site not specified
CPT/HCPCS: 36415; 80053; 80061; 81001; 82550; 83036; 84439; 84443; 85025